=== PATIENT | male | born 1955 | race Caucasian/White ===

== ENCOUNTER 2020-06-10 10:52 | Inpatient (IN) | payer OTHER ==
[~2020-06-10] VITALS: Ht 172.7 cm; Wt 125.2 kg
[2020-06-10 11:53] LABS: BASOPHILS % (AUTO) 0.5 % (0.0-2.0); HEMATOCRIT 41.2 % (36.7-47.1); HEMOGLOBIN 14.1 g/dL (12.5-16.3); LYMPHOCYTES # (AUTO) 0.6 K/uL (20.0-40.0); LYMPHOCYTES % (AUTO) 12.1 % (20.5-51.5); MEAN CORPUSCULAR HEMOGLOBIN 29.7 uug (23.8-33.4); MEAN CORPUSCULAR HGB CONC 34 g/dL (32.5-36.3); MEAN CORPUSCULAR VOLUME 86.8 fL (73.0-96.2); MONOCYTES # (AUTO) 0.4 K/uL (2.0-10.0); MONOCYTES % (AUTO) 7.9 % (0.0-11.0); NEUTROPHILS # (AUTO) 4.1 K/uL (1.8-8.9); NEUTROPHILS % (AUTO) 79.5 % (38.5-71.5); PLATELET COUNT (AUTO) 229 K/uL (152-348); RED BLOOD CELL COUNT(AUTO) 4.74 MIL/uL (4.06-5.63); WHITE BLOOD COUNT (AUTO) 5.1 K/uL (3.6-10.2)
[2020-06-10 11:57] LABS: CREATININE 1.1 mg/dL (0.6-1.3); POTASSIUM 3.6 mmol/L (3.5-5.1)
[2020-06-10] MEDS ORDERED: OXYB-58 PO (12:00)
[2020-06-10] MEDS ORDERED: LISI-603 PO (12:00)
[2020-06-10] MEDS ORDERED: PRAV20TA4 PO (12:00)
[2020-06-10] MEDS ORDERED: TAMS-3 PO (12:00)
[2020-06-10] MEDS ORDERED: FINA5TAB11 PO (12:00)
[2020-06-10] MEDS ORDERED: TEST75GE TD (12:00)
[2020-06-10] MEDS ORDERED: AMLO-212 PO (12:00)
[2020-06-10] MEDS ORDERED: FENO160T PO (12:00)
[2020-06-10 12:02] LABS: *BILIRUBIN,URIN NEGATIVE (NEGATIVE); *BLOOD, URINE 1+ (NEGATIVE); *CLARITY,URINE CLEAR (CLEAR); *COLOR,URINE YELLOW (YELLOW); *KETONES,URINE NEGATIVE (NEGATIVE); *UROBILINOGEN,URINE 0.2 E.U./dl (NORMAL); LEUKOCYTE ESTERASE ,URINE NEGATIVE (NEGATIVE); NITRITE, URINE NEGATIVE (NEGATIVE); PH,URINE 5.5 (5.0-8.0); UGLUCOSE NEGATIVE (NEGATIVE)
[2020-06-10 12:09] LABS: BILIRUBIN,DIRECT 0.2 mg/dL (0.0-0.2); BILIRUBIN,TOTAL 0.4 mg/dL (0.2-1.0); TOTAL PROTEIN, SERUM 7.9 g/dL (6.4-8.2)
[2020-06-10] MEDS ORDERED: ONDANSETRON 4 MG/2 ML VIAL IV ONE (12:30)
[2020-06-10] MEDS ORDERED: IV NORMAL SALINE 1000 ML BAG IV ONE (12:30)
[2020-06-10] MEDS ORDERED: HYDROMORPHONE 1 MG/1 ML DISP.SYRIN IV ONE (12:30)
[2020-06-10] MEDS ORDERED: IV NORMAL SALINE 250 ML IV ONE (12:33)
[2020-06-10] MEDS ORDERED: IOHEXOL 300MG/ML 100 ML INFUS..BTL ONE (12:33)
[2020-06-10] MEDS ORDERED: SWABABLE VALVE TRANSFER SET EA MC ONE (12:33)
[2020-06-10] MEDS ORDERED: HYDROMORPHONE 1 MG/1 ML DISP.SYRIN ONE (12:34)
[2020-06-10] MEDS ORDERED: ONDANSETRON 4 MG/2 ML VIAL ONE (12:35)
--- NOTE | 2020-06-10 12:46 | NUR ---
Pt signed consent for Iv contrasted Ct scan. Placed in the chart.
--- NOTE | 2020-06-10 12:51 | NUR ---
Pt out of Er for Ct.
--- NOTE | 2020-06-10 13:24 | NUR ---
Pt back from CT, denies discomfort.
--- NOTE | 2020-06-10 15:04 | NUR ---
Per [facility]PR[facility] Dr Greene, Pt to be admitted to [facility].
--- NOTE | 2020-06-10 16:54 | NUR ---
Dr Lynch spoke to Dr Chamorro for Tele admit. Pt made aware of admits and agreed.
[2020-06-10 17:02] LABS: BACTERIA,URINE NONE SEEN /HPF (NONE SEEN); SQUAMOUS EPITHELIAL CELL,UR NONE SEEN /HPF (NONE SEEN); URINE AMORPHOUS URATE MODERATE /HPF; WBC,URINE 0-3 /HPF (0-3)
--- NOTE | 2020-06-10 17:08 | NUR ---
Patient is resting comfortably in bed with eyes closed, DAWN noted.
[2020-06-10] MEDS ORDERED: DEXAMETHASONE SOD PHOSPHATE 10 MG INJ IV ONE (17:30)
[2020-06-10] MEDS ORDERED: KETOROLAC TROMETHAMINE 30 MG INJ IVP STA (17:51)
[2020-06-10] MEDS ORDERED: DEXAMETHASONE SOD PHOSPHATE 10 MG INJ ONE (17:57)
[2020-06-10] MEDS ORDERED: KETOROLAC TROMETHAMINE 30 MG INJ ONE (17:59)
[2020-06-10] MEDS ORDERED: METOCLOPRAMIDE HCL 10 MG/2 ML VIAL ONE (17:59)
[2020-06-10] MEDS ORDERED: METOCLOPRAMIDE HCL 10 MG/2 ML VIAL IV SCH (18:00)
[2020-06-10] MEDS: AZITHROMYCIN IV 500 MG in IV DEXTROSE 5% 250 ML IV SCH (18:45)
[2020-06-10] MEDS ORDERED: MORPHINE SULFATE 2 MG/1 ML DISP.SYRIN IV PRN (18:45)
[2020-06-10] MEDS ORDERED: ONDANSETRON 4 MG/2 ML VIAL IV PRN (18:45)
[2020-06-10] MEDS ORDERED: MAGNESIUM HYDROXIDE 30 ML LIQUID UDC PO PRN (18:45)
--- NOTE | 2020-06-10 18:55 | NUR ---
Pt seen by admitting, Dr Chamorro.
[2020-06-10] MEDS: DOCUSATE SODIUM 100 MG CAPSULE PO SCH (21:00)
[2020-06-10] MEDS ORDERED: AZITHROMYCIN 500 MG VIAL IV ONE (22:58)
--- NOTE | 2020-06-10 23:18 | NUR ---
Intravenous line to left forearm is patent. IVF infusing; and Azithromycin 500 mg is also infusing at this time. Patient conversant with appropriate affect and responses. Denies any distress at this time. Discussed plan of care; and agreeable. Report given to Ranjan, admitting RN to [facility] unit. COVID precautions maintained. Will continue to monitor. Vital signs stable.
[2020-06-11] VITALS (7 sets, daily range): BP systolic 112–142; BP diastolic 61–80
--- NOTE | 2020-06-11 00:15 | NUR ---
Pt came from ER c/o right lower quadrant abdominal pain,fatigue and SOB. Pt is AAOX4. Denies any CP. Pt placed on 2L NC and saturating at 96%. Denies N/V/Diarrhea. Patient is on isolation precaution, Covid +. RFA IV is intact. Personal belongings checked and with the patient. Safety measures in place. Call light within reach. Will continue with the plan of care.
[2020-06-11] MEDS: PANTOPRAZOLE SODIUM 40 MG TABLET.DR PO SCH (06:16)
[2020-06-11 06:19] LABS: BASOPHILS % (AUTO) 0.2 % (0.0-2.0); HEMATOCRIT 39.6 % (36.7-47.1); HEMOGLOBIN 13.4 g/dL (12.5-16.3); LYMPHOCYTES # (AUTO) 0.6 K/uL (20.0-40.0); MEAN CORPUSCULAR HEMOGLOBIN 29.5 uug (23.8-33.4); MEAN CORPUSCULAR HGB CONC 34 g/dL (32.5-36.3); MEAN CORPUSCULAR VOLUME 87.2 fL (73.0-96.2); MONOCYTES # (AUTO) 0.3 K/uL (2.0-10.0); MONOCYTES % (AUTO) 7.3 % (0.0-11.0); NEUTROPHILS # (AUTO) 3.4 K/uL (1.8-8.9); NEUTROPHILS % (AUTO) 78.5 % (38.5-71.5); PLATELET COUNT (AUTO) 234 K/uL (152-348); RED BLOOD CELL COUNT(AUTO) 4.55 MIL/uL (4.06-5.63); WHITE BLOOD COUNT (AUTO) 4.4 K/uL (3.6-10.2)
--- NOTE | 2020-06-11 06:41 | NUR ---
Pt remained stable throughout the shift. Denies any acute distress or pain at this time. V/S stable on 2L NC. NSR on tele monitor.Comfort care and needs attended. Isolation precaution maintained. Safety precautions in place. Call light within reach. Will endorse to oncoming nurse accordingly.
[2020-06-11 07:07] LABS: THYROID STIMULATING HORMONE 1.138 mIU/mL (0.358-3.740)
--- NOTE | 2020-06-11 07:30 | NUR ---
Received patient in bed, awake, alert and oriented times 4. No sign of distress noted. Patient is on 4L of oxygen nasal cannula. Safety precautions are in place with call light and belongings within reach. Will continue to monitor.
[2020-06-11 07:36] LABS: BILIRUBIN,TOTAL 0.4 mg/dL (0.2-1.0); CREATININE 1.1 mg/dL (0.6-1.3); MAGNESIUM 2.1 mg/dL (1.8-2.4); PHOSPHOROUS 3.3 mg/dL (2.5-4.9); POTASSIUM 4.1 mmol/L (3.5-5.1); TOTAL PROTEIN, SERUM 7.5 g/dL (6.4-8.2)
[2020-06-11] MEDS: DEXAMETHASONE SOD PHOSPHATE 4 MG INJ IV SCH (10:17)
[2020-06-11] MEDS: ENOXAPARIN SODIUM 40 MG/0.4 ML DISP.SYRIN SQ SCH (13:04)
[2020-06-11] MEDS ORDERED: CEFTRIAXONE 1 G VIAL IM SCH (14:00)
[2020-06-11] MEDS ORDERED: CEFTRIAXONE 1 G in IV DEXTROSE 5% 50 ML IV SCH (15:00)
[2020-06-11] MEDS: AZITHROMYCIN IV 500 MG in IV DEXTROSE 5% 250 ML IV SCH (18:16)
[2020-06-11] MEDS: TAMSULOSIN HCL 0.4 MG CAP.SR.24H PO SCH (21:33)
[2020-06-11] MEDS: DOCUSATE SODIUM 100 MG CAPSULE PO SCH (21:33)
--- NOTE | 2020-06-12 00:05 | NUR ---
WAXER OPERATOR report drop in patient's O2 saturation to the 70s. Several attempts yielded similar results. Changed to non rebreather and increased to 6L. Patient's O2 sat increased to 98%. Will continue to monitor.
[2020-06-12] MEDS: ACETAMINOPHEN 325 MG TABLET PO PRN ×2 (00:20→17:41)
[2020-06-12 04:00] VITALS: BP 123/79
[2020-06-12] MEDS: OXYBUTYNIN XL 5 MG TABSR PO SCH (06:21)
[2020-06-12] MEDS: PANTOPRAZOLE SODIUM 40 MG TABLET.DR PO SCH (06:21)
--- NOTE | 2020-06-12 06:54 | NUR ---
Patient is resting in bed. No sign of distress noted. Gave all medications as ordered. Patient O2 has been in the low 90s with the non-rebreather at 6L. MD made aware. Safety precautions are in place. Will endorse to oncoming shift.
[2020-06-12] MEDS: DEXAMETHASONE SOD PHOSPHATE 4 MG INJ IV SCH (08:28)
[2020-06-12] MEDS: FINASTERIDE 5 MG TABLET PO SCH (08:28)
[2020-06-12] MEDS: ENOXAPARIN SODIUM 40 MG/0.4 ML DISP.SYRIN SQ SCH (08:33)
[2020-06-12 10:26] LABS: ABG BASE EXCESS -0.2 mmol/L; ABG HCO3 23.2 mmol/L; ABG PCO2 34.4 mmHg (35.0-45.0); ABG PH 7.447 (7.350-7.450); ABG PO2 61.2 mmHg (75.0-100.0); ABG SITE RIGHT RADIAL; ABG TOTAL HEMOGLOBIN 14.1 G/dL (13.5-18.0); COHb 1.5 % (0.5-1.5); MetHb 0.1 % (0.0-1.5); O2Hb 90.3 % (94.0-97.0)
[2020-06-12 11:45] VITALS: BP 138/74
--- NOTE | 2020-06-12 15:11 | NUR ---
INVESTIGATIONS DIRECTOR REPORTS O2 SATURATION IN LOW 80S ON 6L OXYGEN. INCREASED OXYGEN TO 12L VIA NONREBREATHER MASK - SATURATION 90-91%. WILL CONTINUE TO MONITOR. MD NOTIFIED.
[2020-06-12 15:38] VITALS: BP 128/74
[2020-06-12] MEDS: ZINC SULFATE 220 MG CAPSULE PO SCH (16:16)
[2020-06-12 20:00] VITALS: BP 128/78
[2020-06-12] MEDS ORDERED: REMDESIVIR (CHARGED) 200 MG in IV NORMAL SALINE 250 ML IV ONE (20:00)
[2020-06-12] MEDS: DOCUSATE SODIUM 100 MG CAPSULE PO SCH (21:10)
[2020-06-12] MEDS: TAMSULOSIN HCL 0.4 MG CAP.SR.24H PO SCH (21:10)
[2020-06-12] MEDS: MIRALAX 17 GM POWD.PACK PO PRN (21:21)
[2020-06-12] MEDS: ALBUTEROL SULFATE 8 GM HFA.AER.AD IH PRN (22:35)
--- NOTE | 2020-06-13 00:18 | NUR ---
Received pt resting in bed. AAO x3. On 12L O2 via nonrebreather mask, saturation 90%. Denies pain. Due meds given as ordered. Safety measures maintained. Call light and personal items within reach. Will continue to monitor.
[2020-06-13 00:50] VITALS: BP 141/83
--- NOTE | 2020-06-13 03:12 | NUR ---
Pt on 15L nonrebreather mask, O2 sat 85%, and pt has shortness of breath especially on exertion. Notified Viry, with new order to place high flow NC and NRB. Notified RT. Will continue to monitor.
[2020-06-13 04:53] VITALS: BP 155/82
[2020-06-13 05:31] VITALS: BP 131/70
[2020-06-13] MEDS: OXYBUTYNIN XL 5 MG TABSR PO SCH (05:39)
[2020-06-13] MEDS: PANTOPRAZOLE SODIUM 40 MG TABLET.DR PO SCH (06:09)
--- NOTE | 2020-06-13 07:30 | NUR ---
Received patient in bed, awake, alert and oriented times 4. No sign of distress noted. Patient is on high flow oxygen with a non rebreather mask. Safety precautions are in place with call light and belongings within reach. Will continue to monitor.
[2020-06-13 08:18] LABS: BILIRUBIN,DIRECT 0.2 mg/dL (0.0-0.2); BILIRUBIN,TOTAL 0.5 mg/dL (0.2-1.0); CREATININE 1.1 mg/dL (0.6-1.3); MAGNESIUM 1.7 mg/dL (1.8-2.4); PHOSPHOROUS 4.3 mg/dL (2.5-4.9); POTASSIUM 3.6 mmol/L (3.5-5.1); TOTAL PROTEIN, SERUM 7.5 g/dL (6.4-8.2)
[2020-06-13 09:25] LABS: BASOPHILS % (AUTO) 0.4 % (0.0-2.0); HEMATOCRIT 38.5 % (36.7-47.1); HEMOGLOBIN 13.2 g/dL (12.5-16.3); LYMPHOCYTES # (AUTO) 1.1 K/uL (20.0-40.0); LYMPHOCYTES % (AUTO) 12.4 % (20.5-51.5); MEAN CORPUSCULAR HGB CONC 34 g/dL (32.5-36.3); MEAN CORPUSCULAR VOLUME 87.5 fL (73.0-96.2); MONOCYTES # (AUTO) 0.5 K/uL (2.0-10.0); MONOCYTES % (AUTO) 5.4 % (0.0-11.0); NEUTROPHILS # (AUTO) 7.2 K/uL (1.8-8.9); NEUTROPHILS % (AUTO) 81.8 % (38.5-71.5); PLATELET COUNT (AUTO) 256 K/uL (152-348); WHITE BLOOD COUNT (AUTO) 8.8 K/uL (3.6-10.2)
[2020-06-13] MEDS ORDERED: MAGNESIUM OXIDE 400 MG TABLET PO ONE (10:00)
[2020-06-13] MEDS ORDERED: POTASSIUM CHLORIDE 20 MEQ TAB.PRT.SR PO ONE (10:00)
[2020-06-13] MEDS ORDERED: POTASSIUM CHLORIDE 20 MEQ POWDER PACKET PO ONE (10:15)
[2020-06-13] MEDS: ZINC SULFATE 220 MG CAPSULE PO SCH (11:06)
[2020-06-13] MEDS: DEXAMETHASONE SOD PHOSPHATE 4 MG INJ IV SCH (11:06)
[2020-06-13] MEDS: FINASTERIDE 5 MG TABLET PO SCH (11:06)
[2020-06-13] MEDS: ENOXAPARIN SODIUM 40 MG/0.4 ML DISP.SYRIN SQ SCH (11:07)
[2020-06-13 12:00] VITALS: BP 124/71
[2020-06-13] MEDS ORDERED: REMDESIVIR (CHARGED) 100 MG in IV NORMAL SALINE 230 ML IV SCH (15:30)
[2020-06-13 16:00] VITALS: BP 133/80
[2020-06-13 18:18] LABS: *OCCULT BLOOD STOOL NEGATIVE (NEGATIVE)
[2020-06-13] MEDS: TAMSULOSIN HCL 0.4 MG CAP.SR.24H PO SCH (20:42)
[2020-06-13] MEDS: DOCUSATE SODIUM 100 MG CAPSULE PO SCH (20:42)
[2020-06-13 20:44] VITALS: BP 146/95
[2020-06-13] MEDS: REMDESIVIR (CHARGED) 100 MG in IV NORMAL SALINE 100 ML IV SCH (20:47)
[2020-06-13] MEDS: MIRALAX 17 GM POWD.PACK PO PRN (22:01)
--- NOTE | 2020-06-13 22:54 | NUR ---
Received pt sitting on bed and eating. AAO x4. On high flow NC/ NRB. No acute distress noted. Denies pain/ discomfort. Due meds given as ordered. Safety measures maintained. Call light and personal items within reach. Will continue to monitor.
[2020-06-13] MEDS: ACETAMINOPHEN 325 MG TABLET PO PRN (23:34)
[2020-06-14 00:48] VITALS: BP 144/80
[2020-06-14 04:56] VITALS: BP 133/63
[2020-06-14] MEDS: PANTOPRAZOLE SODIUM 40 MG TABLET.DR PO SCH (06:11)
[2020-06-14] MEDS: OXYBUTYNIN XL 5 MG TABSR PO SCH (06:12)
[2020-06-14 07:58] LABS: BASOPHILS % (AUTO) 0.1 % (0.0-2.0); HEMATOCRIT 38.7 % (36.7-47.1); HEMOGLOBIN 13.3 g/dL (12.5-16.3); LYMPHOCYTES % (AUTO) 10.8 % (20.5-51.5); MEAN CORPUSCULAR HEMOGLOBIN 29.9 uug (23.8-33.4); MEAN CORPUSCULAR HGB CONC 34 g/dL (32.5-36.3); MEAN CORPUSCULAR VOLUME 87.2 fL (73.0-96.2); MONOCYTES # (AUTO) 0.3 K/uL (2.0-10.0); MONOCYTES % (AUTO) 3.8 % (0.0-11.0); NEUTROPHILS # (AUTO) 7.7 K/uL (1.8-8.9); NEUTROPHILS % (AUTO) 85.3 % (38.5-71.5); PLATELET COUNT (AUTO) 291 K/uL (152-348); RED BLOOD CELL COUNT(AUTO) 4.44 MIL/uL (4.06-5.63)
[2020-06-14 08:24] LABS: BILIRUBIN,DIRECT 0.2 mg/dL (0.0-0.2); BILIRUBIN,TOTAL 0.6 mg/dL (0.2-1.0); PHOSPHOROUS 3.5 mg/dL (2.5-4.9); POTASSIUM 3.6 mmol/L (3.5-5.1); TOTAL PROTEIN, SERUM 7.7 g/dL (6.4-8.2)
[2020-06-14] MEDS: ZINC SULFATE 220 MG CAPSULE PO SCH (09:23)
[2020-06-14] MEDS: FINASTERIDE 5 MG TABLET PO SCH (09:23)
[2020-06-14] MEDS: DEXAMETHASONE SOD PHOSPHATE 4 MG INJ IV SCH (09:24)
[2020-06-14] MEDS: ENOXAPARIN SODIUM 40 MG/0.4 ML DISP.SYRIN SQ SCH (09:27)
[2020-06-14 12:15] VITALS: BP 125/77
[2020-06-14] MEDS: ACETAMINOPHEN 325 MG TABLET PO PRN (12:40)
[2020-06-14] MEDS: MIRALAX 17 GM POWD.PACK PO PRN (13:04)
[2020-06-14 16:00] VITALS: BP 124/76
[2020-06-14 18:48] LABS: *BILIRUBIN,URIN NEGATIVE (NEGATIVE); *BLOOD, URINE NEGATIVE (NEGATIVE); *CLARITY,URINE CLEAR (CLEAR); *COLOR,URINE DARK YELLOW (YELLOW); *KETONES,URINE NEGATIVE (NEGATIVE); LEUKOCYTE ESTERASE ,URINE NEGATIVE (NEGATIVE); NITRITE, URINE NEGATIVE (NEGATIVE); UGLUCOSE NEGATIVE (NEGATIVE)
--- NOTE | 2020-06-14 18:55 | NUR ---
Patient remains alert, oriented x 4, on high flow NC and non-rebreather. No complain of any pain or discomfort at this time. Needs attended to promptly. Noted with episode of fever 100.8, given PRN tylenol as ordered with noted improvement of temp. to 98.6. Call light and frequently used items placed within patient's reach. Will continue to monitor and will endorse accordingly.
[2020-06-14 20:18] VITALS: BP 120/71
[2020-06-14] MEDS: REMDESIVIR (CHARGED) 100 MG in IV NORMAL SALINE 100 ML IV SCH (21:01)
[2020-06-14] MEDS: TAMSULOSIN HCL 0.4 MG CAP.SR.24H PO SCH (21:03)
[2020-06-14] MEDS: DOCUSATE SODIUM 100 MG CAPSULE PO SCH (21:03)
--- NOTE | 2020-06-14 23:40 | NUR ---
PATIENT ALERT ORIENTED, ON BIPAP 03/06 RATE 24 100%, SATURATION 92%. PATIENT SAID HE FELT BETTER, CONT TO MONITOR.
--- NOTE | 2020-06-14 23:40 | NUR ---
PATIENT COMPLAIN OF DIFFICULTY BREATHING, CHECK OXYGEN SATURATION 76 TO 83 ON HIGH FLOW, PLUS NON BREATHER MASK 10, COMPLAIN OF CHEST PAIN. NOTIFY DR SAMSON WITH ORDER BIPAP TO KEEP SAT 92 ABOVE. PATIENT OFFERED MORPHINE IV FOR PAIN BUT REFUSED. CONT TO MONITOR , NO S/S OF DISTRESS.
[2020-06-15 00:09] VITALS: BP 133/80
[2020-06-15] MEDS: ACETAMINOPHEN 325 MG TABLET PO PRN (03:27)
--- NOTE | 2020-06-15 04:27 | NUR ---
PATIENT ASLEEP BUT AROUSABLE, GIVEN TYLENOL 650MG FOR HEADACHES WITH EFFECTIVE RESULTS, CONT TO MONITOR.
[2020-06-15 06:01] VITALS: BP 107/57
[2020-06-15] MEDS: OXYBUTYNIN XL 5 MG TABSR PO SCH (06:07)
[2020-06-15] MEDS: PANTOPRAZOLE SODIUM 40 MG TABLET.DR PO SCH (06:07)
--- NOTE | 2020-06-15 07:06 | NUR ---
Patient asleep, but arousable, on cpap sat 88-95%, no complain of pain or discomfort. Patient tele monitor sinus rhythm at this time, cont to monitor.
--- NOTE | 2020-06-15 07:30 | NUR ---
Received patient in bed, Awake alert and oriented times 4. Patient is on BIPAP. No signs of distress noted. Safety precautions in place. Will continue to monitor.
[2020-06-15 08:53] LABS: BASOPHILS % (AUTO) 0.5 % (0.0-2.0); EOSINOPHILS % (AUTO) 0.1 % (0.0-7.0); HEMATOCRIT 37.2 % (36.7-47.1); HEMOGLOBIN 12.8 g/dL (12.5-16.3); MEAN CORPUSCULAR HEMOGLOBIN 30.1 uug (23.8-33.4); MEAN CORPUSCULAR HGB CONC 34 g/dL (32.5-36.3); MEAN CORPUSCULAR VOLUME 87.7 fL (73.0-96.2); MONOCYTES # (AUTO) 0.3 K/uL (2.0-10.0); NEUTROPHILS # (AUTO) 7.9 K/uL (1.8-8.9); NEUTROPHILS % (AUTO) 85.4 % (38.5-71.5); PLATELET COUNT (AUTO) 261 K/uL (152-348); RED BLOOD CELL COUNT(AUTO) 4.24 MIL/uL (4.06-5.63); WHITE BLOOD COUNT (AUTO) 9.3 K/uL (3.6-10.2)
[2020-06-15 09:16] LABS: BILIRUBIN,DIRECT 0.1 mg/dL (0.0-0.2); BILIRUBIN,TOTAL 0.8 mg/dL (0.2-1.0); CREATININE 0.9 mg/dL (0.6-1.3); POTASSIUM 4.2 mmol/L (3.5-5.1); TOTAL PROTEIN, SERUM 7.5 g/dL (6.4-8.2)
[2020-06-15] MEDS: ZINC SULFATE 220 MG CAPSULE PO SCH (11:36)
[2020-06-15] MEDS: ENOXAPARIN SODIUM 40 MG/0.4 ML DISP.SYRIN SQ SCH (11:36)
[2020-06-15] MEDS: FINASTERIDE 5 MG TABLET PO SCH (11:36)
[2020-06-15] MEDS: DEXAMETHASONE SOD PHOSPHATE 4 MG INJ IV SCH (11:36)
[2020-06-15 12:00] VITALS: BP 119/66
[2020-06-15] MEDS: ACIDOPHILUS/BULGARICUS CHEW TAB PO SCH ×2 (13:13→22:22)
[2020-06-15] MEDS: ASCORBIC ACID 500 MG TABLET PO SCH (13:13)
[2020-06-15] MEDS: CHOLECALCIFEROL 1,000 UNIT TABLET PO SCH (13:13)
[2020-06-15] MEDS: PIPERACILLIN SODIUM/TAZOBACTAM 3.375 G in IV DEXTROSE 5% 50 ML IV SCH ×2 (14:44→22:19)
[2020-06-15 16:00] VITALS: BP 133/76
[2020-06-15] MEDS: REMDESIVIR (CHARGED) 100 MG in IV NORMAL SALINE 100 ML IV SCH (20:00)
[2020-06-15 20:18] VITALS: BP 130/79
[2020-06-15] MEDS: DOCUSATE SODIUM 100 MG CAPSULE PO SCH (22:22)
[2020-06-15] MEDS: TAMSULOSIN HCL 0.4 MG CAP.SR.24H PO SCH (22:22)
[2020-06-16 00:12] VITALS: BP 110/67
[2020-06-16] MEDS: PIPERACILLIN SODIUM/TAZOBACTAM 3.375 G in IV DEXTROSE 5% 50 ML IV SCH ×3 (05:00→22:14)
[2020-06-16 05:41] VITALS: BP 125/72
[2020-06-16] MEDS: OXYBUTYNIN XL 5 MG TABSR PO SCH (05:57)
[2020-06-16] MEDS: PANTOPRAZOLE SODIUM 40 MG TABLET.DR PO SCH (06:04)
[2020-06-16] MEDS: ACIDOPHILUS/BULGARICUS CHEW TAB PO SCH ×2 (08:39→21:03)
[2020-06-16] MEDS: CHOLECALCIFEROL 1,000 UNIT TABLET PO SCH (08:39)
[2020-06-16] MEDS: FINASTERIDE 5 MG TABLET PO SCH (08:39)
[2020-06-16] MEDS: DEXAMETHASONE SOD PHOSPHATE 4 MG INJ IV SCH (08:40)
[2020-06-16] MEDS: ZINC SULFATE 220 MG CAPSULE PO SCH (08:40)
[2020-06-16] MEDS: ASCORBIC ACID 500 MG TABLET PO SCH (08:40)
[2020-06-16] MEDS: ENOXAPARIN SODIUM 40 MG/0.4 ML DISP.SYRIN SQ SCH (08:41)
[2020-06-16 09:06] LABS: BILIRUBIN,DIRECT 0.1 mg/dL (0.0-0.2); BILIRUBIN,TOTAL 0.6 mg/dL (0.2-1.0); CREATININE 0.9 mg/dL (0.6-1.3); MAGNESIUM 2.1 mg/dL (1.8-2.4); PHOSPHOROUS 3.9 mg/dL (2.5-4.9); POTASSIUM 4.3 mmol/L (3.5-5.1); TOTAL PROTEIN, SERUM 7.2 g/dL (6.4-8.2)
[2020-06-16 09:22] VITALS: BP 132/72
[2020-06-16 09:55] LABS: BASOPHILS % (AUTO) 0.1 % (0.0-2.0); EOSINOPHILS % (AUTO) 0.2 % (0.0-7.0); HEMATOCRIT 37.6 % (36.7-47.1); HEMOGLOBIN 12.6 g/dL (12.5-16.3); LYMPHOCYTES # (AUTO) 0.9 K/uL (20.0-40.0); LYMPHOCYTES % (AUTO) 8.8 % (20.5-51.5); MEAN CORPUSCULAR HEMOGLOBIN 29.7 uug (23.8-33.4); MEAN CORPUSCULAR HGB CONC 34 g/dL (32.5-36.3); MEAN CORPUSCULAR VOLUME 88.3 fL (73.0-96.2); MONOCYTES # (AUTO) 0.3 K/uL (2.0-10.0); MONOCYTES % (AUTO) 2.5 % (0.0-11.0); NEUTROPHILS # (AUTO) 9.3 K/uL (1.8-8.9); NEUTROPHILS % (AUTO) 88.4 % (38.5-71.5); PLATELET COUNT (AUTO) 249 K/uL (152-348); RED BLOOD CELL COUNT(AUTO) 4.26 MIL/uL (4.06-5.63); WHITE BLOOD COUNT (AUTO) 10.5 K/uL (3.6-10.2)
[2020-06-16] MEDS ORDERED: ENOXAPARIN SODIUM 80 MG/0.8 ML DISP.SYRIN SQ ONE (13:00)
[2020-06-16 17:40] VITALS: BP 130/72
--- NOTE | 2020-06-16 19:00 | NUR ---
Neuro: AAOx4 Cardio: SR Resp: Bipap fio2 100%, spo2 92%-93%. Pt put on HF 40L 100% during meals. Pt did not tolerate, spo2 drop to mid 70's, pt SOB and complained of feeling "suffocated" Skin: intact GI: continent : continent, urinal New: Lactate: 2.3, D-dimer >35, lovenox adjusted. Plan: AM labs, IV Remdesevir and Actemra, Bipap and titrate as tolerated, tele monitoring
[2020-06-16 20:00] VITALS: BP 139/70
[2020-06-16] MEDS ORDERED: diphenhydrAMINE 50 MG/1 ML VIAL IV ONE ×2 (20:00→23:00)
[2020-06-16] MEDS ORDERED: TOCILIZUMAB 400 MG in IV NORMAL SALINE 80 ML IV ONE (20:00)
[2020-06-16] MEDS ORDERED: ACETAMINOPHEN 325 MG TABLET PO ONE ×2 (20:00→23:00)
[2020-06-16] MEDS: TAMSULOSIN HCL 0.4 MG CAP.SR.24H PO SCH (21:03)
[2020-06-16] MEDS: REMDESIVIR (CHARGED) 100 MG in IV NORMAL SALINE 100 ML IV SCH (21:03)
[2020-06-16] MEDS: DOCUSATE SODIUM 100 MG CAPSULE PO SCH (21:03)
[2020-06-16] MEDS: TOCILIZUMAB 400 MG in IV NORMAL SALINE 80 ML IV ONE (23:00)
[2020-06-16] MEDS: ENOXAPARIN SODIUM 120 MG/0.8 ML SYRINGE SQ SCH (23:00)
[2020-06-17] VITALS: BP 140/82
[2020-06-17] MEDS: TOCILIZUMAB 400 MG in IV NORMAL SALINE 80 ML IV ONE (00:36)
--- NOTE | 2020-06-17 02:00 | NUR ---
actemra administered after withdrawal of blood per Pooja in house pharmacy. patient closely monitored for side effects of hypotension or other s/s of distress per Pooja. no reactions and no ASE after completion of administration. patient stable. BP and temperature WNL at this time. will continue to monitor patient.
[2020-06-17 04:31] VITALS: BP 114/68
[2020-06-17] MEDS: PIPERACILLIN SODIUM/TAZOBACTAM 3.375 G in IV DEXTROSE 5% 50 ML IV SCH ×2 (06:06→13:44)
[2020-06-17] MEDS: PANTOPRAZOLE SODIUM 40 MG TABLET.DR PO SCH (06:06)
[2020-06-17] MEDS: OXYBUTYNIN XL 5 MG TABSR PO SCH (06:06)
[2020-06-17 07:31] LABS: BASOPHILS % (AUTO) 0.3 % (0.0-2.0); EOSINOPHILS % (AUTO) 0.8 % (0.0-7.0); HEMATOCRIT 37.3 % (36.7-47.1); HEMOGLOBIN 12.5 g/dL (12.5-16.3); LYMPHOCYTES # (AUTO) 0.8 K/uL (20.0-40.0); LYMPHOCYTES % (AUTO) 13.4 % (20.5-51.5); MEAN CORPUSCULAR HEMOGLOBIN 29.7 uug (23.8-33.4); MEAN CORPUSCULAR HGB CONC 34 g/dL (32.5-36.3); MEAN CORPUSCULAR VOLUME 88.7 fL (73.0-96.2); MONOCYTES # (AUTO) 0.2 K/uL (2.0-10.0); MONOCYTES % (AUTO) 2.8 % (0.0-11.0); NEUTROPHILS # (AUTO) 4.7 K/uL (1.8-8.9); NEUTROPHILS % (AUTO) 82.7 % (38.5-71.5); PLATELET COUNT (AUTO) 257 K/uL (152-348); WHITE BLOOD COUNT (AUTO) 5.7 K/uL (3.6-10.2)
[2020-06-17 07:48] LABS: CREATININE 1.1 mg/dL (0.6-1.3); MAGNESIUM 2.2 mg/dL (1.8-2.4); PHOSPHOROUS 4.7 mg/dL (2.5-4.9)
[2020-06-17] MEDS: ASCORBIC ACID 500 MG TABLET PO SCH (08:00)
[2020-06-17] MEDS: ZINC SULFATE 220 MG CAPSULE PO SCH (08:00)
--- NOTE | 2020-06-17 08:00 | NUR ---
Received PT in bed, awake AO X 4. Safety measures noted. PT is cooperative and pleasant. No acute distress noted. Some SOB noted when Bipap is taken off for a minute. Oxygen saturation at 91% with Bipap. PT states that removing Bipap to eat gives discomfort. Makes needs known to staff. PT is on bedrest with safety measures, call light within reach, bed low and lock. Will continue to monitor.
[2020-06-17] MEDS: CHOLECALCIFEROL 1,000 UNIT TABLET PO SCH (08:02)
[2020-06-17] MEDS: ACIDOPHILUS/BULGARICUS CHEW TAB PO SCH ×2 (08:02→20:16)
[2020-06-17] MEDS: DEXAMETHASONE SOD PHOSPHATE 4 MG INJ IV SCH (08:02)
[2020-06-17] MEDS: FINASTERIDE 5 MG TABLET PO SCH (08:02)
--- NOTE | 2020-06-17 08:40 | NUR ---
ATTEMPTED TO PUT PATIENT ON HIGH FLOW NASAL CANNULA SO PATIENT CAN EAT. PT UNABLE TO TOLERATE; O2 SAT DROPS TO ~68% ON 50L @ 100% AND BECOMES SHORT OF BREATH. PT UNABLE TO EAT AND PLACED PT BACK ON BIPAP. O2 SAT INCREASED TO >90%. NURSE NICK MADE AWARE. WILL CONTINUE TO MONITOR.
--- NOTE | 2020-06-17 08:45 | NUR ---
Encouraged PT to eat as much as tolerated. PT attempted to eat breakfast with high flow NC with respiratory therapist, but desaturated to 68%. PT was placed back on Bipap by RT. Consumed 15-20% meal. Back on Bipap, O2 saturation is at 92%.No acute distress noted. PT comfortable and in bed. Safety measures provided, call light within reach, bed low and lock. Will continue to monitor.
[2020-06-17] MEDS: ENOXAPARIN SODIUM 120 MG/0.8 ML SYRINGE SQ SCH ×2 (11:12→23:17)
[2020-06-17 12:00] VITALS: BP 125/74
[2020-06-17 12:31] LABS: ABG HCO3 23.3 mmol/L; ABG PH 7.454 (7.350-7.450); ABG PO2 81.6 mmHg (75.0-100.0); ABG SITE LEFT RADIAL; ABG TOTAL HEMOGLOBIN 13.1 G/dL (13.5-18.0); COHb 1.2 % (0.5-1.5); MetHb 0.1 % (0.0-1.5); O2Hb 95.1 % (94.0-97.0); VENT MODE BIPAP
[2020-06-17] MEDS: ENSURE ENLIVE (VAN) 240 ML LIQUID PO SCH ×2 (16:15→17:36)
[2020-06-17 16:18] VITALS: BP 115/48
--- NOTE | 2020-06-17 18:00 | NUR ---
PT did not want to attempt lunch meal. Ensure supplement order placed for calorie consumption. PT tolerated little at a time on Bipap with nurse. Lots of rest periods between each sip. O2 saturation at 93%. During dinner meal, PT attempted to eat with high flow. Respiratory therapistJunaid monitored PT and stated that PT tolerated more than breakfast. Was placed back on Bipap and O2 saturation at 91%. No acute distress noted. No complain of pain. Safety measures provided, call light within reach, bed low and lock. Will endorse to shift stacker
--- NOTE | 2020-06-17 19:00 | NUR ---
Patient alert oriented, still on cpap sat 92%, no complain of pain, tele monitor sinus rhythm at this time, cont to monitor.
--- NOTE | 2020-06-17 19:30 | NUR ---
Patient refused prone position, unable to tolerate position, desaturating.
[2020-06-17 20:15] VITALS: BP 131/79
[2020-06-17] MEDS: DOCUSATE SODIUM 100 MG CAPSULE PO SCH (20:16)
[2020-06-17] MEDS: TAMSULOSIN HCL 0.4 MG CAP.SR.24H PO SCH (20:16)
[2020-06-17] MEDS: MIRALAX 17 GM POWD.PACK PO PRN (21:32)
[2020-06-18] VITALS (8 sets, daily range): BP systolic 109–153; BP diastolic 64–90
[2020-06-18] MEDS: ALBUTEROL SULFATE 8 GM HFA.AER.AD IH PRN (01:15)
[2020-06-18] MEDS: PANTOPRAZOLE SODIUM 40 MG TABLET.DR PO SCH (06:01)
[2020-06-18] MEDS: OXYBUTYNIN XL 5 MG TABSR PO SCH (06:02)
[2020-06-18] MEDS: CHOLECALCIFEROL 1,000 UNIT TABLET PO SCH (09:10)
[2020-06-18] MEDS: ACIDOPHILUS/BULGARICUS CHEW TAB PO SCH ×2 (09:10→20:37)
[2020-06-18] MEDS: FINASTERIDE 5 MG TABLET PO SCH (09:11)
[2020-06-18] MEDS: ZINC SULFATE 220 MG CAPSULE PO SCH (09:11)
[2020-06-18] MEDS: ENSURE ENLIVE (VAN) 240 ML LIQUID PO SCH ×2 (09:11→17:35)
[2020-06-18] MEDS: DEXAMETHASONE SOD PHOSPHATE 4 MG INJ IV SCH (09:11)
[2020-06-18] MEDS: ASCORBIC ACID 500 MG TABLET PO SCH (09:11)
[2020-06-18 11:16] LABS: CRYPTOCOCCUS AB, SERUM Negative (Negative)
[2020-06-18] MEDS: ENOXAPARIN SODIUM 120 MG/0.8 ML SYRINGE SQ SCH ×2 (12:02→22:41)
--- NOTE | 2020-06-18 18:00 | NUR ---
Convalescent plasma started transfusing at 1700, vs T98.5, P83, BP 118/70. Verified with GOPAL Rodriguez. Pt is no apparent distress. in 15 min Vs T98.3, P 85, BP 109/66. Finished infusing in one hour, no distress. Vs T 98.5, P 84, BP 112/70.
[2020-06-18] MEDS: TAMSULOSIN HCL 0.4 MG CAP.SR.24H PO SCH (20:37)
[2020-06-18] MEDS: DOCUSATE SODIUM 100 MG CAPSULE PO SCH (20:37)
--- NOTE | 2020-06-18 22:10 | NUR ---
Spoke with pt's sister Susie Moyer [phone] who would like to speak with a physician in regards to an update in status and condition. Will endorse to morning shift.
--- NOTE | 2020-06-18 23:00 | NUR ---
Pt assisted to prone position with RT present. Pt did not tolerate position well stating "It's hard to breath with a lot of pressure on my chest" bipap in place O2 saturation dropped to 87-86%. Repositioned patient to left side laying and provided education to reposition frequently.
[2020-06-19 01:45] VITALS: BP 124/72
[2020-06-19] MEDS: OXYBUTYNIN XL 5 MG TABSR PO SCH (06:08)
[2020-06-19] MEDS: PANTOPRAZOLE SODIUM 40 MG TABLET.DR PO SCH (06:08)
[2020-06-19 06:35] VITALS: BP 124/64
--- NOTE | 2020-06-19 07:00 | NUR ---
Pt slept intermittently, afebrile. No s/s of acute distress noted. SOB upon exertion, repositioning in bed and removing bipap to eat and drink. O2 desaturation to mid 80's without mask. Pt required coaching to focus on breathing and reduce anxiety, O2 increased to 90-92%. Safety and isolation precautions remained intact. will endorse to oncoming shift.
[2020-06-19 08:00] VITALS: BP 125/84
[2020-06-19] MEDS: ALBUTEROL SULFATE 8 GM HFA.AER.AD IH PRN ×3 (08:00→16:00)
[2020-06-19] MEDS: DEXAMETHASONE SOD PHOSPHATE 4 MG INJ IV SCH (08:42)
[2020-06-19] MEDS: ACIDOPHILUS/BULGARICUS CHEW TAB PO SCH ×2 (08:42→20:59)
[2020-06-19] MEDS: CHOLECALCIFEROL 1,000 UNIT TABLET PO SCH (08:42)
[2020-06-19] MEDS: ZINC SULFATE 220 MG CAPSULE PO SCH (08:42)
[2020-06-19] MEDS: ENSURE ENLIVE (VAN) 240 ML LIQUID PO SCH ×2 (08:42→16:49)
[2020-06-19] MEDS: ASCORBIC ACID 500 MG TABLET PO SCH (08:42)
[2020-06-19] MEDS: FINASTERIDE 5 MG TABLET PO SCH (08:42)
[2020-06-19] MEDS: ENOXAPARIN SODIUM 120 MG/0.8 ML SYRINGE SQ SCH ×2 (11:15→23:12)
[2020-06-19 12:00] VITALS: BP 127/82
--- NOTE | 2020-06-19 17:39 | NUR ---
patient is alert, oriented x4, verbally responsive, continues on BIPAP, sob upon exertion, poorly tolerated meals without the bipap, refused to go to prone position, patient stated he will try later, able to transfer himself from bed to bedside commode, and vise versa, instructed patient to focus on breathing. no fever, no chills noted during shift.
[2020-06-19 20:32] VITALS: BP 134/74
[2020-06-19] MEDS: DOCUSATE SODIUM 100 MG CAPSULE PO SCH (21:00)
[2020-06-19] MEDS: TAMSULOSIN HCL 0.4 MG CAP.SR.24H PO SCH (21:00)
[2020-06-19] MEDS ORDERED: CEFTRIAXONE /D5W 50ML IVPB **ER PYXIS IV ONE (21:56)
[2020-06-19] MEDS: CEFTRIAXONE 1 G in IV DEXTROSE 5% 50 ML IV SCH (23:12)
[2020-06-20] VITALS (13 sets, daily range): BP systolic 85–141; BP diastolic 44–85
[2020-06-20] MEDS: OXYBUTYNIN XL 5 MG TABSR PO SCH (06:09)
[2020-06-20] MEDS: PANTOPRAZOLE SODIUM 40 MG TABLET.DR PO SCH (06:09)
--- NOTE | 2020-06-20 06:42 | NUR ---
Pt slept intermittently, afebrile. No s/s of acute distress noted. SOB upon exertion. Pt refused prone position, repositioned self left to right side laying, continues on Bipap O2 90-92%. Safety measures and isolation precautions observed and in place. will endorse to oncoming shift.
[2020-06-20] MEDS: ALBUTEROL SULFATE 8 GM HFA.AER.AD IH PRN (07:01)
[2020-06-20] MEDS ORDERED: PROPOFOL 200 MG/20 ML BOTTLE IV ONE (07:38)
[2020-06-20] MEDS ORDERED: ETOMIDATE 20 MG/10 ML VIAL MC ONE (07:38)
[2020-06-20] MEDS ORDERED: SUCCINYLCHOLINE CHLORIDE 200 MG/10 ML VIAL MC ONE (07:38)
--- NOTE | 2020-06-20 08:00 | NUR ---
Patient received on BIPAP 26/01 rate of 18, FIO2 of 100%. Mid Line to LUE patent and HL. Over all patient AAOX4. PT able to make his needs known. Pt denies any c/o pain. Witnessed takes off his bipap to take pills and desaturates right away to 82%. Bipap reapplied after pills and ensure taken by patient. Call light is within reach.
[2020-06-20] MEDS: CHOLECALCIFEROL 1,000 UNIT TABLET PO SCH (09:34)
[2020-06-20] MEDS: ACIDOPHILUS/BULGARICUS CHEW TAB PO SCH ×2 (09:34→21:00)
[2020-06-20] MEDS: ASCORBIC ACID 500 MG TABLET PO SCH (09:34)
[2020-06-20] MEDS: ZINC SULFATE 220 MG CAPSULE PO SCH (09:34)
[2020-06-20] MEDS: FINASTERIDE 5 MG TABLET PO SCH (09:34)
[2020-06-20] MEDS: DEXAMETHASONE SOD PHOSPHATE 4 MG INJ IV SCH (09:35)
[2020-06-20] MEDS: ENSURE ENLIVE (VAN) 240 ML LIQUID PO SCH ×2 (09:35→17:13)
--- NOTE | 2020-06-20 10:00 | NUR ---
Dr Matthews here to see patient. Pt to be transferred to [facility]. Awaiting bed availability.
[2020-06-20] MEDS: ENOXAPARIN SODIUM 60 MG/0.6 ML DISP.SYRIN SQ SCH ×2 (11:00→21:21)
[2020-06-20 11:06] LABS: CRYPTOCOCCUS AB, SERUM Negative (Negative)
--- NOTE | 2020-06-20 12:00 | NUR ---
Pt tolerated getting oob independently to the commode. Pt doesn't desaturates when getting oob stay with o2 sat of 94%. Call light is within reach. No diarrhea noted.
--- NOTE | 2020-06-20 17:00 | NUR ---
Pt transferred to ICU as ordered. Report given to ICU nurse. Pt tolerated the transfer with NRB mask flushed with 15 liters.
--- NOTE | 2020-06-20 17:27 | NUR ---
Patient in from medical floor, via own bed, transported by R.N. and RT. patient received on BIPAP 18/8 rate of 18, FIO2 of 100%. ML to LUE patent and HL. Over all patient AAOX4. vitals stable HR of 72, sbp of 102/49, saturation of 92% RR int he mid 30-low 40's. patient situated in bed, oriented to call light and tv. control.
[2020-06-20 17:36] LABS: ABG BASE EXCESS 2.6 mmol/L; ABG HCO3 26.1 mmol/L; ABG PCO2 36.3 mmHg (35.0-45.0); ABG PH 7.474 (7.350-7.450); ABG PO2 63.5 mmHg (75.0-100.0); ABG SITE LEFT BRACHIAL; ABG TOTAL HEMOGLOBIN 13.5 G/dL (13.5-18.0); COHb 1.1 % (0.5-1.5); MetHb 0.1 % (0.0-1.5); O2Hb 91.6 % (94.0-97.0); VENT MODE BIPAP
--- NOTE | 2020-06-20 17:52 | NUR ---
ABG results called to [employer] nutrition aide Dr. Regalado. Orders to intubate pt. due to pt's desaturation despite been on 100% fio2 on BIPAP and labor breathing. Vent initials of A/C 24, tv 500, Peep +10. and ABG 1 hours post intubation. Orders for sedation and vasopressors received as well.
[2020-06-20] MEDS ORDERED: NOREPINEPHRINE BITARTRATE 32 MG in IV NORMAL SALINE 218 ML IV PRN (18:00)
--- NOTE | 2020-06-20 18:35 | NUR ---
Will Aguilar at bedside to intubate pt. during intubation pt. received a total of 40mg og etomidate, 100mcg propofol, and 200 of suchs. Pt. placed on vent setting as ordered by Dr. Regalado.
--- NOTE | 2020-06-20 19:00 | NUR ---
received patient post intubation , very restless , on propofolat 10 mcg , ns at 30 ml , cxr post intubation is being done , vent settings of ac 24 tv 500 p 10 fio2 100 % , saturating 90 % , no fevr , hr 113 bp 132 / 76 .rr 30 , temp of 98 3 , white inserted
--- NOTE | 2020-06-20 19:14 | NUR ---
Bedside report given to incoming rn Yuly who walked in the middle of intubations process. RN was endorsed initiation of propofol drip as well as levophed if needed it. R. N also informed to follow up with ABG 1hour post intubation.
[2020-06-20] MEDS: PROPOFOL 50 ML IV PRN ×4 (19:16→23:56)
--- NOTE | 2020-06-20 19:45 | NUR ---
dr eid notified of cxr ett placement , received order to advanced 1cm
--- NOTE | 2020-06-20 19:50 | NUR ---
notified rt celine of order to advance 1 cm ett , done
[2020-06-20] MEDS: FENTANYL CITRAT IV 1,000 MCG in IV NORMAL SALINE 80 ML IV PRN (19:58)
--- NOTE | 2020-06-20 20:00 | NUR ---
tried to call next of kin listed on the facesheet , phone is disconnected , no other number listed , dr quinn
--- NOTE | 2020-06-20 20:20 | NUR ---
versed iv started at 1 mg Addendum: 06/21/20 at 0314 by KRISTAN YO RN wrong medication enetered it is fentanyl started at 25 mcg
--- NOTE | 2020-06-20 20:30 | NUR ---
waiting for picc line nurse to insert picc line , supervisor gelatin [employer] is aware
[2020-06-20 20:57] LABS: ABG BASE EXCESS -10.3 mmol/L; ABG HCO3 20.5 mmol/L; ABG PCO2 66.8 mmHg (35.0-45.0); ABG PH 7.104 (7.350-7.450); ABG PO2 44.7 mmHg (75.0-100.0); ABG SITE LEFT RADIAL; ABG TOTAL HEMOGLOBIN 15.1 G/dL (13.5-18.0); COHb 1.3 % (0.5-1.5); MetHb 0.2 % (0.0-1.5); O2Hb 63.3 % (94.0-97.0); VENT MODE VENT - A/C; VT, ABG 500 mL
[2020-06-20] MEDS: DOCUSATE SODIUM 100 MG CAPSULE PO SCH (21:00)
[2020-06-20] MEDS: TAMSULOSIN HCL 0.4 MG CAP.SR.24H PO SCH (21:00)
--- NOTE | 2020-06-20 21:15 | NUR ---
dr berkowitz is notified of abg results , received order of vent changes
--- NOTE | 2020-06-20 22:00 | NUR ---
talked to sister Susie , updates given on the patient , on ventilator and medications being given , picc line consent given
--- NOTE | 2020-06-20 22:12 | NUR ---
oralia called to notify of patient's condition received order of iv fluids
[2020-06-20] MEDS ORDERED: Z GUARD REMEDY PASTE 57 GM TUBE TOP PRN (22:30)
--- NOTE | 2020-06-20 22:45 | NUR ---
picc line inserted by picc line nurse
[2020-06-20] MEDS: IV D5 1/2 NS 1000 ML 1,000 ML IV PRN (23:56)
[2020-06-21] VITALS (89 sets, daily range): BP systolic 68–184; BP diastolic 39–116
[2020-06-21] MEDS: CEFTRIAXONE 1 G in IV DEXTROSE 5% 50 ML IV SCH (00:01)
--- NOTE | 2020-06-21 01:00 | NUR ---
picc line nurse espositioned the picc line per xray results
[2020-06-21] MEDS: PROPOFOL 50 ML IV PRN ×8 (01:03→12:16)
--- NOTE | 2020-06-21 01:27 | NUR ---
xray done for new picc line post repositioning , waiting for results
--- NOTE | 2020-06-21 02:00 | NUR ---
miriam , outside pharmacy is called to verify maximum dose for fentanyl, 100 mcg
--- NOTE | 2020-06-21 04:00 | NUR ---
ngt inserted clamped
[2020-06-21 05:28] LABS: BASOPHILS # (AUTO) 0.1 K/uL (0.0-8.0); BASOPHILS % (AUTO) 0.5 % (0.0-2.0); EOSINOPHILS % (AUTO) 0.1 % (0.0-7.0); HEMATOCRIT 41.6 % (36.7-47.1); HEMOGLOBIN 13.5 g/dL (12.5-16.3); LYMPHOCYTES # (AUTO) 1.1 K/uL (20.0-40.0); LYMPHOCYTES % (AUTO) 4.9 % (20.5-51.5); MEAN CORPUSCULAR HEMOGLOBIN 29.1 uug (23.8-33.4); MEAN CORPUSCULAR HGB CONC 32 g/dL (32.5-36.3); MEAN CORPUSCULAR VOLUME 89.8 fL (73.0-96.2); MONOCYTES # (AUTO) 0.6 K/uL (2.0-10.0); MONOCYTES % (AUTO) 2.6 % (0.0-11.0); NEUTROPHILS # (AUTO) 20.5 K/uL (1.8-8.9); NEUTROPHILS % (AUTO) 91.9 % (38.5-71.5); PLATELET COUNT (AUTO) 342 K/uL (152-348); RED BLOOD CELL COUNT(AUTO) 4.63 MIL/uL (4.06-5.63); WHITE BLOOD COUNT (AUTO) 22.3 K/uL (3.6-10.2)
[2020-06-21 05:33] LABS: CREATININE 1.3 mg/dL (0.6-1.3)
--- NOTE | 2020-06-21 06:00 | NUR ---
propofol at 50 mcg , levophed at 0.01 , fentanyl at 30 mcg , vent settings at ac 30 tv 550 p 12 at 100 fio2 d5 1/2 ns at 75 ml , no fever , bs 142 ,
[2020-06-21] MEDS: PANTOPRAZOLE SODIUM 40 MG TABLET.DR PO SCH (06:42)
[2020-06-21] MEDS: OXYBUTYNIN XL 5 MG TABSR PO SCH (07:15)
[2020-06-21] MEDS: ENSURE ENLIVE (VAN) 240 ML LIQUID PO SCH ×2 (08:00→16:46)
--- NOTE | 2020-06-21 08:01 | NUR ---
[address] Randolph. orders to increase flow and ratio to 1:2. RT Peng in the unit and notified of orders.
[2020-06-21 08:02] LABS: BILIRUBIN,DIRECT 0.2 mg/dL (0.0-0.2); BILIRUBIN,TOTAL 0.4 mg/dL (0.2-1.0)
[2020-06-21] MEDS: ZINC SULFATE 220 MG CAPSULE PO SCH (08:29)
[2020-06-21] MEDS: FINASTERIDE 5 MG TABLET PO SCH (08:29)
[2020-06-21] MEDS: ASCORBIC ACID 500 MG TABLET PO SCH (08:29)
[2020-06-21] MEDS: ACIDOPHILUS/BULGARICUS CHEW TAB PO SCH ×2 (08:29→21:08)
[2020-06-21] MEDS: ENOXAPARIN SODIUM 60 MG/0.6 ML DISP.SYRIN SQ SCH ×2 (08:31→21:09)
[2020-06-21] MEDS: CHOLECALCIFEROL 1,000 UNIT TABLET PO SCH (08:36)
--- NOTE | 2020-06-21 11:37 | NUR ---
Attending physician, Dr. Matthews in the unit to see and examine pt. full report given, also provided with Cell phone number of pt's sister Ms. Susie Moyer who called earlier requesting and up date from physician. Earlier Ms. Moyer was updated on pt's current condition and care plan.
--- NOTE | 2020-06-21 11:39 | NUR ---
pulmonary services, Dr. Randolph in the unit to see and examine pt. full report given. See order hx.
[2020-06-21] MEDS ORDERED: IPRATROPIUM/ALBUTEROL SULFATE 14.7 GM INHALER INH SCH (13:00)
[2020-06-21] MEDS: PROPOFOL 100 ML IV PRN ×5 (13:38→23:48)
[2020-06-21] MEDS: IV D5 1/2 NS 1000 ML 1,000 ML IV PRN (13:43)
[2020-06-21] MEDS: IPRATROPIUM/ALBUTEROL SULFATE 14.7 GM INHALER INH SCH ×2 (14:00→19:30)
[2020-06-21] MEDS: NOREPINEPHRINE BITARTRATE 8 MG in IV NORMAL SALINE 242 ML IV PRN ×2 (16:07→19:40)
[2020-06-21] MEDS: FENTANYL CITRAT IV 1,000 MCG in IV NORMAL SALINE 80 ML IV PRN (17:34)
--- NOTE | 2020-06-21 19:00 | NUR ---
received patient labored breathing , tachypneic rr 39 , hr 105 , temp 99. 4 , bp 184/ 80 ngt [lacement checked and intact , vent settings of ac 30 tv 550 p 12 , titrated to 100 % fio2 , levophed at 0.2 mcg , propofol at 60 mcg , fentanyl at 100 mcg , d5 1/2 ns at 75 mk white and picc line intact
[2020-06-21 19:39] LABS: *BILIRUBIN,URIN NEGATIVE (NEGATIVE); *BLOOD, URINE 2+ (NEGATIVE); *CLARITY,URINE SLIGHTLY CLOUDY (CLEAR); *COLOR,URINE YELLOW (YELLOW); *KETONES,URINE NEGATIVE (NEGATIVE); *UROBILINOGEN,URINE 0.2 E.U./dl (NORMAL); LEUKOCYTE ESTERASE ,URINE NEGATIVE (NEGATIVE); NITRITE, URINE NEGATIVE (NEGATIVE); UGLUCOSE NEGATIVE (NEGATIVE)
[2020-06-21] MEDS ORDERED: PIPERACILLIN SODIUM/TAZOBACTAM 3.375 G in IV DEXTROSE 5% 50 ML IV ONE (20:00)
[2020-06-21 20:54] LABS: BACTERIA,URINE FEW /HPF (NONE SEEN); RBC,URINE 50-80 /HPF (0-3); SQUAMOUS EPITHELIAL CELL,UR FEW /HPF (NONE SEEN); WBC,URINE 0-3 /HPF (0-3)
[2020-06-21 20:55] LABS: URIC ACID CRYSTALS,URINE MODERATE /HPF (NONE SEEN)
[2020-06-21] MEDS: ACETAMINOPHEN 325 MG TABLET PO PRN (21:08)
[2020-06-21] MEDS: TAMSULOSIN HCL 0.4 MG CAP.SR.24H PO SCH (21:09)
[2020-06-21] MEDS: DOCUSATE SODIUM 100 MG CAPSULE PO SCH (21:09)
[2020-06-22] VITALS (91 sets, daily range): BP systolic 96–169; BP diastolic 55–100
[2020-06-22] MEDS: PROPOFOL 100 ML IV PRN ×13 (01:45→23:36)
[2020-06-22] MEDS: IPRATROPIUM/ALBUTEROL SULFATE 14.7 GM INHALER INH SCH ×4 (02:05→19:48)
[2020-06-22] MEDS: FENTANYL CITRAT IV 1,000 MCG in IV NORMAL SALINE 80 ML IV PRN ×3 (02:19→15:02)
[2020-06-22] MEDS: IV D5 1/2 NS 1000 ML 1,000 ML IV PRN (02:43)
[2020-06-22] MEDS: PIPERACILLIN SODIUM/TAZOBACTAM 3.37 G in IV DEXTROSE 5% 100 ML IV SCH ×3 (03:18→20:00)
[2020-06-22] MEDS: NOREPINEPHRINE BITARTRATE 8 MG in IV NORMAL SALINE 242 ML IV PRN ×2 (03:19→14:57)
[2020-06-22 05:06] LABS: EOSINOPHILS # (AUTO) 0.3 K/uL (0.0-0.7); EOSINOPHILS % (AUTO) 2.3 % (0.0-7.0); HEMATOCRIT 40.7 % (36.7-47.1); HEMOGLOBIN 13.5 g/dL (12.5-16.3); LYMPHOCYTES # (AUTO) 1.2 K/uL (20.0-40.0); LYMPHOCYTES % (AUTO) 9.2 % (20.5-51.5); MEAN CORPUSCULAR HEMOGLOBIN 29.6 uug (23.8-33.4); MEAN CORPUSCULAR HGB CONC 33 g/dL (32.5-36.3); MEAN CORPUSCULAR VOLUME 89.3 fL (73.0-96.2); MONOCYTES # (AUTO) 0.5 K/uL (2.0-10.0); MONOCYTES % (AUTO) 3.9 % (0.0-11.0); NEUTROPHILS # (AUTO) 11.5 K/uL (1.8-8.9); NEUTROPHILS % (AUTO) 84.6 % (38.5-71.5); PLATELET COUNT (AUTO) 323 K/uL (152-348); RED BLOOD CELL COUNT(AUTO) 4.56 MIL/uL (4.06-5.63); WHITE BLOOD COUNT (AUTO) 13.6 K/uL (3.6-10.2)
[2020-06-22 05:17] LABS: CREATININE 0.9 mg/dL (0.6-1.3); PHOSPHOROUS 2.8 mg/dL (2.5-4.9); POTASSIUM 4.5 mmol/L (3.5-5.1)
[2020-06-22] MEDS: OXYBUTYNIN XL 5 MG TABSR PO SCH (06:00)
--- NOTE | 2020-06-22 06:00 | NUR ---
patient is obtunded , arousable to deep pain , saturation at 98 % ac 30 tv 550 p 12 at 100 fio2% , fentanyl at 100 mcg , levophed at 01. mcg , d5 1/2 ns at 75 , propofol at 80 mcg , white and picc line intact, no fever , ngt intact
[2020-06-22] MEDS: PANTOPRAZOLE SODIUM 40 MG TABLET.DR PO SCH (06:06)
[2020-06-22 07:50] LABS: ABG BASE EXCESS -0.2 mmol/L; ABG HCO3 27.7 mmol/L; ABG PCO2 59.4 mmHg (35.0-45.0); ABG PH 7.287 (7.350-7.450); ABG PO2 77.5 mmHg (75.0-100.0); ABG SITE RIGHT RADIAL; COHb 1.4 % (0.5-1.5); MetHb 0.2 % (0.0-1.5); O2Hb 92.9 % (94.0-97.0); VENT MODE VENT - A/C PRVC; VT, ABG 500 mL
[2020-06-22] MEDS: ENSURE ENLIVE (VAN) 240 ML LIQUID PO SCH ×2 (07:52→17:00)
[2020-06-22] MEDS: FINASTERIDE 5 MG TABLET PO SCH (08:21)
[2020-06-22] MEDS: CHOLECALCIFEROL 1,000 UNIT TABLET PO SCH (08:21)
[2020-06-22] MEDS: ACIDOPHILUS/BULGARICUS CHEW TAB PO SCH ×2 (08:22→20:07)
[2020-06-22] MEDS: ZINC SULFATE 220 MG CAPSULE PO SCH (08:22)
[2020-06-22] MEDS: ASCORBIC ACID 500 MG TABLET PO SCH (08:22)
[2020-06-22] MEDS: ENOXAPARIN SODIUM 60 MG/0.6 ML DISP.SYRIN SQ SCH ×2 (08:22→20:06)
--- NOTE | 2020-06-22 09:02 | NUR ---
Upon initial morning assessment, pt noted with urine leaking around the white site with minimal output on the white bag. checked for placement. old white removed and noted to be clogged. new white inserted and drained around 1L of urine output immediately.
--- NOTE | 2020-06-22 11:19 | NUR ---
Dr. Vogel in the unit to see pt. report given
--- NOTE | 2020-06-22 13:15 | NUR ---
SHEMAR London and Dr. Randolph in the unit to see pt. full report given
--- NOTE | 2020-06-22 14:23 | NUR ---
vent settings changed by RT from FiO2 100% down to FiO2 80% as ordered by Dr. Randolph
[2020-06-22] MEDS: VITAL AF 1.2 1,000 ML LIQUID GT PRN (16:02)
--- NOTE | 2020-06-22 19:30 | NUR ---
Report received. Patient admitted 06/10/20 DX: Covid-19, Respiratory Failure. Orally intubated and to mechanical ventilator with settings: AC=30, FIO2=80%, SD=366ef and PEEP=12 cm. O2 saturations above 94%. On continuous Diprivan, Fentanyl and Levophed drips via NHUNG PICC line. Assessment done; see flow sheet for complete data. Addendum: 06/23/20 at 0604 by SHANIQUA CREWS RN Amended: Links added.
[2020-06-22] MEDS: TAMSULOSIN HCL 0.4 MG CAP.SR.24H PO SCH (20:07)
[2020-06-22] MEDS: DOCUSATE SODIUM 100 MG CAPSULE PO SCH (20:07)
[2020-06-23] VITALS (85 sets, daily range): BP systolic 80–118; BP diastolic 51–81
[2020-06-23] MEDS: FENTANYL CITRAT IV 1,000 MCG in IV NORMAL SALINE 80 ML IV PRN ×3 (00:54→18:35)
[2020-06-23] MEDS: IPRATROPIUM/ALBUTEROL SULFATE 14.7 GM INHALER INH SCH ×4 (01:28→19:18)
[2020-06-23] MEDS: PROPOFOL 100 ML IV PRN ×10 (01:30→22:41)
--- NOTE | 2020-06-23 03:00 | NUR ---
Levophed drip titrated down as BP permits. BPs dropped to the 80's systole; drip is now at 0.04 mcg/kg/min.
[2020-06-23] MEDS: PIPERACILLIN SODIUM/TAZOBACTAM 3.37 G in IV DEXTROSE 5% 100 ML IV SCH ×3 (04:13→20:01)
[2020-06-23] MEDS: IV D5 1/2 NS 1000 ML 1,000 ML IV PRN ×2 (04:50→22:38)
[2020-06-23 05:26] LABS: BASOPHILS % (AUTO) 0.1 % (0.0-2.0); EOSINOPHILS # (AUTO) 0.3 K/uL (0.0-0.7); EOSINOPHILS % (AUTO) 2.7 % (0.0-7.0); HEMATOCRIT 36.4 % (36.7-47.1); HEMOGLOBIN 12.2 g/dL (12.5-16.3); LYMPHOCYTES # (AUTO) 0.9 K/uL (20.0-40.0); LYMPHOCYTES % (AUTO) 9.3 % (20.5-51.5); MEAN CORPUSCULAR HEMOGLOBIN 29.8 uug (23.8-33.4); MEAN CORPUSCULAR HGB CONC 34 g/dL (32.5-36.3); MEAN CORPUSCULAR VOLUME 88.9 fL (73.0-96.2); MONOCYTES # (AUTO) 0.1 K/uL (2.0-10.0); MONOCYTES % (AUTO) 0.8 % (0.0-11.0); NEUTROPHILS # (AUTO) 8.2 K/uL (1.8-8.9); NEUTROPHILS % (AUTO) 87.1 % (38.5-71.5); PLATELET COUNT (AUTO) 230 K/uL (152-348); RED BLOOD CELL COUNT(AUTO) 4.09 MIL/uL (4.06-5.63); WHITE BLOOD COUNT (AUTO) 9.4 K/uL (3.6-10.2)
[2020-06-23] MEDS: NOREPINEPHRINE BITARTRATE 8 MG in IV NORMAL SALINE 242 ML IV PRN (05:40)
[2020-06-23] MEDS: OXYBUTYNIN XL 5 MG TABSR PO SCH (05:50)
[2020-06-23 06:10] LABS: BILIRUBIN,DIRECT 0.2 mg/dL (0.0-0.2); BILIRUBIN,TOTAL 0.5 mg/dL (0.2-1.0); CREATININE 0.7 mg/dL (0.6-1.3); MAGNESIUM 2.2 mg/dL (1.8-2.4); PHOSPHOROUS 2.4 mg/dL (2.5-4.9); POTASSIUM 4.4 mmol/L (3.5-5.1); TOTAL PROTEIN, SERUM 5.8 g/dL (6.4-8.2)
[2020-06-23] MEDS: PANTOPRAZOLE SODIUM 40 MG TABLET.DR PO SCH (06:37)
--- NOTE | 2020-06-23 07:06 | NUR ---
Remains on same vent settings; O2 saturations above 94%. Still on Diprivan, Levophed and Fentanyl drips via NHUNG PICC line; see IV spread sheet for rates/dosages. COVID-19 isolation maintained. Addendum: 06/23/20 at 0707 by SHANIQUA CREWS RN Amended: Links added.
[2020-06-23 07:49] LABS: ABG BASE EXCESS 4.4 mmol/L; ABG HCO3 32.7 mmol/L; ABG PCO2 67.7 mmHg (35.0-45.0); ABG PH 7.302 (7.350-7.450); ABG PO2 62.5 mmHg (75.0-100.0); ABG SITE RIGHT RADIAL; ABG TOTAL HEMOGLOBIN 12.6 G/dL (13.5-18.0); COHb 1.3 % (0.5-1.5); MetHb 0.2 % (0.0-1.5); O2Hb 89.8 % (94.0-97.0); VENT MODE VENT - A/C PRVC
[2020-06-23 08:00] LABS: VT, ABG 550 mL
[2020-06-23] MEDS: ENSURE ENLIVE (VAN) 240 ML LIQUID PO SCH (08:00)
[2020-06-23] MEDS: ACIDOPHILUS/BULGARICUS CHEW TAB PO SCH ×2 (08:30→20:57)
[2020-06-23] MEDS: FINASTERIDE 5 MG TABLET PO SCH (08:30)
[2020-06-23] MEDS: ZINC SULFATE 220 MG CAPSULE PO SCH (08:30)
[2020-06-23] MEDS: CHOLECALCIFEROL 1,000 UNIT TABLET PO SCH (08:31)
[2020-06-23] MEDS: ASCORBIC ACID 500 MG TABLET PO SCH (08:31)
[2020-06-23] MEDS: ENOXAPARIN SODIUM 60 MG/0.6 ML DISP.SYRIN SQ SCH ×2 (08:32→20:58)
[2020-06-23] MEDS: ACETAMINOPHEN 325 MG TABLET PO PRN (13:41)
--- NOTE | 2020-06-23 14:30 | NUR ---
Dr. Randolph in the unit to see patient. replaced mathew.
[2020-06-23] MEDS ORDERED: NEUTRA PHOS PACKET PO ONE (16:00)
--- NOTE | 2020-06-23 19:30 | NUR ---
Received report from nurse. Pt is COVID (+) with respiratory failure. Currently on mechanical vent while orally intubated @ AC= 30 TV 550 P=12 FiO2 @ 0% to titrate to keep O2 >92%. The patient is on Diprivan, Levophed, and Fentanyl Drips via the NHUNG PICC line. Assessment done and recorded in flow sheet.
[2020-06-23] MEDS: TAMSULOSIN HCL 0.4 MG CAP.SR.24H PO SCH (20:57)
[2020-06-23] MEDS: DOCUSATE SODIUM 100 MG CAPSULE PO SCH (20:57)
--- NOTE | 2020-06-23 22:00 | NUR ---
Levophed drip stopped @ 2000 and BP monitored q15 minutes since. SBP had been >90mmHg.
[2020-06-24] VITALS (30 sets, daily range): BP systolic 86–151; BP diastolic 49–100
[2020-06-24] MEDS: PROPOFOL 100 ML IV PRN ×7 (01:28→23:05)
[2020-06-24] MEDS: IPRATROPIUM/ALBUTEROL SULFATE 14.7 GM INHALER INH SCH ×4 (01:36→19:30)
[2020-06-24] MEDS: PIPERACILLIN SODIUM/TAZOBACTAM 3.37 G in IV DEXTROSE 5% 100 ML IV SCH ×3 (04:54→20:37)
[2020-06-24] MEDS: FENTANYL CITRAT IV 1,000 MCG in IV NORMAL SALINE 80 ML IV PRN ×2 (05:10→15:22)
[2020-06-24 05:47] LABS: BASOPHILS # (AUTO) 0.1 K/uL (0.0-8.0); BASOPHILS % (AUTO) 0.6 % (0.0-2.0); EOSINOPHILS # (AUTO) 0.2 K/uL (0.0-0.7); EOSINOPHILS % (AUTO) 1.9 % (0.0-7.0); HEMOGLOBIN 12.5 g/dL (12.5-16.3); LYMPHOCYTES # (AUTO) 0.9 K/uL (20.0-40.0); LYMPHOCYTES % (AUTO) 10.1 % (20.5-51.5); MEAN CORPUSCULAR HEMOGLOBIN 29.4 uug (23.8-33.4); MEAN CORPUSCULAR HGB CONC 33 g/dL (32.5-36.3); MEAN CORPUSCULAR VOLUME 89.8 fL (73.0-96.2); MONOCYTES # (AUTO) 0.2 K/uL (2.0-10.0); MONOCYTES % (AUTO) 2.6 % (0.0-11.0); NEUTROPHILS # (AUTO) 7.8 K/uL (1.8-8.9); NEUTROPHILS % (AUTO) 84.8 % (38.5-71.5); PLATELET COUNT (AUTO) 266 K/uL (152-348); RED BLOOD CELL COUNT(AUTO) 4.24 MIL/uL (4.06-5.63); WHITE BLOOD COUNT (AUTO) 9.2 K/uL (3.6-10.2)
[2020-06-24 06:00] LABS: CREATININE 0.7 mg/dL (0.6-1.3); MAGNESIUM 2.4 mg/dL (1.8-2.4); PHOSPHOROUS 2.9 mg/dL (2.5-4.9); POTASSIUM 4.8 mmol/L (3.5-5.1)
[2020-06-24] MEDS: OXYBUTYNIN XL 5 MG TABSR PO SCH (06:00)
[2020-06-24] MEDS: PANTOPRAZOLE SODIUM 40 MG TABLET.DR PO SCH (06:01)
--- NOTE | 2020-06-24 06:28 | NUR ---
The patient remains on same vent settings, saturation remained above 92%. On Zosyn IV ATB, Fentanyl and Diprivan drip via NHUNG PICC line. Diprivan drip titrated due to mild agitation. COVID-19 isolation maintained.
[2020-06-24] MEDS: CHOLECALCIFEROL 1,000 UNIT TABLET PO SCH (08:15)
[2020-06-24] MEDS: ASCORBIC ACID 500 MG TABLET PO SCH (08:15)
[2020-06-24] MEDS: ZINC SULFATE 220 MG CAPSULE PO SCH (08:15)
[2020-06-24] MEDS: ACIDOPHILUS/BULGARICUS CHEW TAB PO SCH ×2 (08:15→20:39)
[2020-06-24] MEDS: ENOXAPARIN SODIUM 60 MG/0.6 ML DISP.SYRIN SQ SCH ×2 (08:16→20:40)
[2020-06-24] MEDS: FINASTERIDE 5 MG TABLET PO SCH (08:16)
[2020-06-24 08:21] LABS: ABG HCO3 34.8 mmol/L; ABG PCO2 79.6 mmHg (35.0-45.0); ABG PH 7.258 (7.350-7.450); ABG PO2 82.6 mmHg (75.0-100.0); ABG SITE LEFT RADIAL; ABG TOTAL HEMOGLOBIN 13.4 G/dL (13.5-18.0); COHb 1.7 % (0.5-1.5); MetHb 0.3 % (0.0-1.5); O2Hb 93.6 % (94.0-97.0); VENT MODE VENT - A/C; VT, ABG 550 mL
[2020-06-24] MEDS: ALBUTEROL SULFATE 8 GM HFA.AER.AD IH PRN (09:43)
[2020-06-24] MEDS: IV D5 1/2 NS 1000 ML 1,000 ML IV PRN (13:00)
--- NOTE | 2020-06-24 20:00 | NUR ---
received intubated ac30/tv550/peep12 fio2 80%,suction via the ett and via mouth with small amt of thick secretions . on propofol for sedation and fentanyl.see flow sheet . tube feeding NGT on vital AF at 25 ML /HR tolerating . hob up . patient doesn't follow commands .sr on the heart monitor no s/s of pain . f/c to bsd.left arm piccline all 3 ports patent . will continue to monitor v/s and levels of comfort .
[2020-06-24] MEDS: DOCUSATE SODIUM 100 MG CAPSULE PO SCH (20:37)
[2020-06-24] MEDS: TAMSULOSIN HCL 0.4 MG CAP.SR.24H PO SCH (20:38)
--- NOTE | 2020-06-24 23:00 | NUR ---
turned and reposition patient ,hob up.offloaded back with pillow and heels off bed with pillows .
[2020-06-25] VITALS (23 sets, daily range): BP systolic 96–118; BP diastolic 55–70
[2020-06-25] MEDS: IPRATROPIUM/ALBUTEROL SULFATE 14.7 GM INHALER INH SCH ×4 (01:40→19:30)
[2020-06-25] MEDS: PROPOFOL 100 ML IV PRN ×12 (01:59→23:33)
[2020-06-25] MEDS: FENTANYL CITRAT IV 1,000 MCG in IV NORMAL SALINE 80 ML IV PRN ×3 (01:59→19:00)
[2020-06-25] MEDS: IV D5 1/2 NS 1000 ML 1,000 ML IV PRN ×2 (02:02→14:37)
[2020-06-25] MEDS ORDERED: PROPOFOL 100 ML ONE (03:56)
[2020-06-25 05:37] LABS: BASOPHILS % (AUTO) 0.6 % (0.0-2.0); EOSINOPHILS # (AUTO) 0.1 K/uL (0.0-0.7); EOSINOPHILS % (AUTO) 1.5 % (0.0-7.0); HEMATOCRIT 36.4 % (36.7-47.1); HEMOGLOBIN 11.8 g/dL (12.5-16.3); LYMPHOCYTES # (AUTO) 0.8 K/uL (20.0-40.0); LYMPHOCYTES % (AUTO) 11.4 % (20.5-51.5); MEAN CORPUSCULAR HEMOGLOBIN 29.3 uug (23.8-33.4); MEAN CORPUSCULAR HGB CONC 33 g/dL (32.5-36.3); MEAN CORPUSCULAR VOLUME 90.2 fL (73.0-96.2); MONOCYTES # (AUTO) 0.2 K/uL (2.0-10.0); MONOCYTES % (AUTO) 2.3 % (0.0-11.0); NEUTROPHILS # (AUTO) 6.1 K/uL (1.8-8.9); NEUTROPHILS % (AUTO) 84.2 % (38.5-71.5); PLATELET COUNT (AUTO) 243 K/uL (152-348); RED BLOOD CELL COUNT(AUTO) 4.03 MIL/uL (4.06-5.63); WHITE BLOOD COUNT (AUTO) 7.2 K/uL (3.6-10.2)
[2020-06-25] MEDS: PIPERACILLIN SODIUM/TAZOBACTAM 3.37 G in IV DEXTROSE 5% 100 ML IV SCH ×3 (05:43→20:07)
[2020-06-25] MEDS: OXYBUTYNIN XL 5 MG TABSR PO SCH (05:47)
[2020-06-25 05:53] LABS: ALANINE AMINOTRANSFERASE 38 U/L (16-63); ALKALINE PHOSPHATASE 68 U/L (50-136); ASPARTATE AMINOTRANSFERASE 29 U/L (15-37); BILIRUBIN,DIRECT 0.2 mg/dL (0.0-0.2); BILIRUBIN,TOTAL 0.4 mg/dL (0.2-1.0); CARBON DIOXIDE 34 mmol/L (21-32); CHLORIDE 100 mmol/L (98-107); CREATININE 0.6 mg/dL (0.6-1.3); GLUCOSE 143 mg/dL (74-106); MAGNESIUM 2.6 mg/dL (1.8-2.4); POTASSIUM 5.1 mmol/L (3.5-5.1); TOTAL PROTEIN, SERUM 6.3 g/dL (6.4-8.2)
[2020-06-25] MEDS: PANTOPRAZOLE SODIUM 40 MG TABLET.DR PO SCH (07:01)
[2020-06-25 07:43] LABS: CHOLESTEROL 145 mg/dL (<200); HDL CHOLESTEROL 31 mg/dL (40-60); TRIGLYCERIDES 303 MG/DL (30-150)
[2020-06-25 07:46] LABS: UREA NITROGEN, BLOOD 19 mg/dL (7-18)
[2020-06-25] MEDS: CHOLECALCIFEROL 1,000 UNIT TABLET PO SCH (08:49)
[2020-06-25] MEDS: FINASTERIDE 5 MG TABLET PO SCH (08:50)
[2020-06-25] MEDS: ASCORBIC ACID 500 MG TABLET PO SCH (08:50)
[2020-06-25] MEDS: ACIDOPHILUS/BULGARICUS CHEW TAB PO SCH ×2 (08:50→20:28)
[2020-06-25] MEDS: ZINC SULFATE 220 MG CAPSULE PO SCH (08:50)
[2020-06-25] MEDS: VITAL AF 1.2 1,000 ML LIQUID GT PRN (08:56)
[2020-06-25] MEDS: ENOXAPARIN SODIUM 120 MG/0.8 ML SYRINGE SQ SCH ×2 (09:02→20:36)
[2020-06-25 09:25] LABS: ABG BASE EXCESS 5.1 mmol/L; ABG HCO3 36.8 mmol/L; ABG PCO2 102.6 mmHg (35.0-45.0); ABG PH 7.173 (7.350-7.450); ABG PO2 62.9 mmHg (75.0-100.0); ABG SITE RIGHT RADIAL; ABG TOTAL HEMOGLOBIN 12.6 G/dL (13.5-18.0); COHb 1.7 % (0.5-1.5); MetHb 0.4 % (0.0-1.5); O2Hb 87.8 % (94.0-97.0); VENT MODE VENT - A/C; VT, ABG 550 mL
--- NOTE | 2020-06-25 09:41 | NUR ---
Called Dr. Randolph regarding ABG results. Awaiting return call.
--- NOTE | 2020-06-25 09:58 | NUR ---
Spoke with Dr. Randolph on the telephone and reported ABG results. New orders received.
--- NOTE | 2020-06-25 14:29 | NUR ---
Dr. Randolph in the unit to see & assess pt. report given.
--- NOTE | 2020-06-25 19:30 | NUR ---
Report received. Patient on isolation for COVID 19, orally intubated and to mechanical ventilator settings: AC=30, QN=578 ml, FIO2=80%, PEEP=15. On continuous Diprivan and Fentanyl drips via NHUNG PICC line; see IV spread sheet for rates/dosages. Assessment done and documented.
[2020-06-25] MEDS: TAMSULOSIN HCL 0.4 MG CAP.SR.24H PO SCH (20:28)
[2020-06-25] MEDS: DOCUSATE SODIUM 100 MG CAPSULE PO SCH (20:28)
[2020-06-25] MEDS: ACETAMINOPHEN 325 MG TABLET PO PRN (21:09)
[2020-06-26] VITALS (24 sets, daily range): BP systolic 90–109; BP diastolic 54–67
[2020-06-26] MEDS: IPRATROPIUM/ALBUTEROL SULFATE 14.7 GM INHALER INH SCH ×4 (01:22→19:59)
[2020-06-26] MEDS: PROPOFOL 100 ML IV PRN ×11 (03:20→22:36)
[2020-06-26] MEDS: PIPERACILLIN SODIUM/TAZOBACTAM 3.37 G in IV DEXTROSE 5% 100 ML IV SCH ×3 (03:27→19:43)
[2020-06-26 05:15] LABS: BASOPHILS # (AUTO) 0.1 K/uL (0.0-8.0); BASOPHILS % (AUTO) 1.4 % (0.0-2.0); EOSINOPHILS # (AUTO) 0.1 K/uL (0.0-0.7); EOSINOPHILS % (AUTO) 1.1 % (0.0-7.0); HEMATOCRIT 33.8 % (36.7-47.1); HEMOGLOBIN 10.9 g/dL (12.5-16.3); LYMPHOCYTES # (AUTO) 0.7 K/uL (20.0-40.0); LYMPHOCYTES % (AUTO) 10.4 % (20.5-51.5); MEAN CORPUSCULAR HEMOGLOBIN 29.7 uug (23.8-33.4); MEAN CORPUSCULAR HGB CONC 32 g/dL (32.5-36.3); MEAN CORPUSCULAR VOLUME 91.7 fL (73.0-96.2); MONOCYTES # (AUTO) 0.4 K/uL (2.0-10.0); MONOCYTES % (AUTO) 5.7 % (0.0-11.0); NEUTROPHILS # (AUTO) 5.4 K/uL (1.8-8.9); NEUTROPHILS % (AUTO) 81.4 % (38.5-71.5); PLATELET COUNT (AUTO) 242 K/uL (152-348); RED BLOOD CELL COUNT(AUTO) 3.68 MIL/uL (4.06-5.63); WHITE BLOOD COUNT (AUTO) 6.7 K/uL (3.6-10.2)
[2020-06-26 05:39] LABS: CREATININE 0.9 mg/dL (0.6-1.3); MAGNESIUM 2.7 mg/dL (1.8-2.4); PHOSPHOROUS 4.5 mg/dL (2.5-4.9); POTASSIUM 5.9 mmol/L (3.5-5.1)
[2020-06-26] MEDS: FENTANYL CITRAT IV 1,000 MCG in IV NORMAL SALINE 80 ML IV PRN ×3 (05:59→21:35)
[2020-06-26] MEDS: OXYBUTYNIN XL 5 MG TABSR PO SCH (06:00)
[2020-06-26] MEDS: PANTOPRAZOLE SODIUM 40 MG TABLET.DR PO SCH (06:12)
--- NOTE | 2020-06-26 07:27 | NUR ---
Remains on same vent settings: AC=30, EJ=125, TV=80%, PEEP=15; O2 saturations above 94%. Tolerating NGT feedings well. Still on Diprivan and Fentanyl drips via NHUNG PICC line.
[2020-06-26] MEDS: ACIDOPHILUS/BULGARICUS CHEW TAB PO SCH ×2 (08:29→20:29)
[2020-06-26] MEDS: ASCORBIC ACID 500 MG TABLET PO SCH (08:29)
[2020-06-26] MEDS: CHOLECALCIFEROL 1,000 UNIT TABLET PO SCH (08:29)
[2020-06-26] MEDS: FINASTERIDE 5 MG TABLET PO SCH (08:29)
[2020-06-26] MEDS: ZINC SULFATE 220 MG CAPSULE PO SCH (08:29)
[2020-06-26] MEDS: ENOXAPARIN SODIUM 120 MG/0.8 ML SYRINGE SQ SCH ×2 (08:37→20:33)
[2020-06-26 08:48] LABS: ABG BASE EXCESS 4.4 mmol/L; ABG HCO3 35.6 mmol/L; ABG PH 7.206 (7.350-7.450); ABG PO2 84.4 mmHg (75.0-100.0); ABG SITE LEFT RADIAL; COHb 2.2 % (0.5-1.5); MetHb 0.3 % (0.0-1.5); O2Hb 93.5 % (94.0-97.0); VENT MODE Press. Reg. Vol. Con; VT, ABG 550 mL
[2020-06-26] MEDS ORDERED: OXYBUTYNIN CHLORIDE 5 MG TABLET PO SCH (09:00)
[2020-06-26] MEDS ORDERED: SODIUM POLYSTYRENE SULFONATE 15 G/60 ML LIQUID UDC PO ONE ×2 (10:00→18:45)
[2020-06-26] MEDS ORDERED: FUROSEMIDE 40 MG/4 ML VIAL IV ONE (12:00)
--- NOTE | 2020-06-26 12:02 | NUR ---
PT RECEIVED ON VENT WITH 7.5 ETT SECURED AT 24CM BY LIP LINE. VENT SETTINGS PRVC AC30/550/80%/+15 PEEP. ROUTINE ABG DONE AND SEEN BY DR MOSES. NO CHANGES MADE AT THIS TIME. WILL CONTINUE TO MONITOR.
--- NOTE | 2020-06-26 12:16 | NUR ---
DOCTOR AURELIA IN THE UNIT TO SEE PATIENT. WILL CONSIDER SWITCHING TO VERSED OR ANOTHER SEDATIVE ONCE ABG IS BETTER. IS AWARE TRIGLYCERIDES ARE ELEVATED.
[2020-06-26] MEDS: ACETAMINOPHEN 325 MG TABLET PO PRN ×2 (12:32→18:25)
--- NOTE | 2020-06-26 18:15 | NUR ---
PT TOLERATED CURRENT VENT SETTINGS FINE WITHOUT ANY EPISODE OF RESPIRATORY DISTRESS.NO VENT SETTING CHANGES MADE. PT HAD LARGE AMOUNT OF THICK YELLOW SECRETIONS. ORAL CARE WAS DONE IN THE BEGINNING OF THE SHIFT. THE HEAD OF THE BED WAS MAINTAINED ABOVE 35 DEGREE ANGLE THROUGHOUT SHIFT.
[2020-06-26 18:26] LABS: CREATININE 0.8 mg/dL (0.6-1.3); POTASSIUM 5.5 mmol/L (3.5-5.1)
[2020-06-26] MEDS ORDERED: FUROSEMIDE 20 MG/2 ML VIAL IV ONE (18:45)
--- NOTE | 2020-06-26 20:00 | NUR ---
RECEIVED PT ORALLY INTUBATED TO VENT W/ SETTINGS OF AC-30, TV-550, FIO2-80%, PEEP-+15 W/ O2 SAT OF 97%. ON DIPRIVAN DRIP @ 75MCQ/KG/MIN VIA PICC LINE ON NHUNG. ON FENTANYL DRIP @ 0.1MG/HR. D51/2 NS @ 35CC/HR. NGT ON L NARE CHECKED PLACEMENT & CHECKED RESIDUAL 5CC NOTED. ON TUBE FDG OF VITAL AF 1.2 @ 25CC/HR. BP STABLE. KEPT HOB ELEVATED
[2020-06-26] MEDS: TAMSULOSIN HCL 0.4 MG CAP.SR.24H PO SCH (20:29)
[2020-06-26] MEDS: DOCUSATE SODIUM 100 MG CAPSULE PO SCH (20:29)
[2020-06-26] MEDS: OXYBUTYNIN CHLORIDE 5 MG TABLET GT SCH (20:30)
--- NOTE | 2020-06-26 22:00 | NUR ---
HS CARE DONE. SUCTIONED. SUCTIONED ORALLY & VIA ETT. KEPT HOB ELEVATED.
[2020-06-27] VITALS (24 sets, daily range): BP systolic 80–119; BP diastolic 46–80
[2020-06-27] MEDS: IPRATROPIUM/ALBUTEROL SULFATE 14.7 GM INHALER INH SCH ×4 (00:30→20:49)
[2020-06-27] MEDS: PROPOFOL 100 ML IV PRN ×9 (00:48→23:07)
--- NOTE | 2020-06-27 04:00 | NUR ---
AM CARE DONE. ORAL CARE DONE.
[2020-06-27] MEDS: PIPERACILLIN SODIUM/TAZOBACTAM 3.37 G in IV DEXTROSE 5% 100 ML IV SCH ×3 (04:05→20:18)
[2020-06-27] MEDS: ACETAMINOPHEN 325 MG TABLET PO PRN ×2 (04:42→18:16)
[2020-06-27] MEDS: FENTANYL CITRAT IV 1,000 MCG in IV NORMAL SALINE 80 ML IV PRN ×2 (05:33→15:47)
[2020-06-27] MEDS: PANTOPRAZOLE ORAL SUSPENSION 40 MG SUSPDR.PKT GT SCH (06:20)
[2020-06-27 06:25] LABS: BILIRUBIN,TOTAL 0.4 mg/dL (0.2-1.0); CREATININE 0.8 mg/dL (0.6-1.3); MAGNESIUM 2.6 mg/dL (1.8-2.4); PHOSPHOROUS 4.3 mg/dL (2.5-4.9); POTASSIUM 4.8 mmol/L (3.5-5.1); TOTAL PROTEIN, SERUM 6.4 g/dL (6.4-8.2)
[2020-06-27 06:27] LABS: BASOPHILS # (AUTO) 0.1 K/uL (0.0-8.0); EOSINOPHILS # (AUTO) 0.1 K/uL (0.0-0.7); EOSINOPHILS % (AUTO) 0.8 % (0.0-7.0); HEMATOCRIT 32.4 % (36.7-47.1); HEMOGLOBIN 10.4 g/dL (12.5-16.3); LYMPHOCYTES # (AUTO) 0.7 K/uL (20.0-40.0); MEAN CORPUSCULAR HEMOGLOBIN 29.5 uug (23.8-33.4); MEAN CORPUSCULAR HGB CONC 32 g/dL (32.5-36.3); MEAN CORPUSCULAR VOLUME 92.2 fL (73.0-96.2); MONOCYTES # (AUTO) 0.5 K/uL (2.0-10.0); NEUTROPHILS % (AUTO) 84.2 % (38.5-71.5); PLATELET COUNT (AUTO) 235 K/uL (152-348); RED BLOOD CELL COUNT(AUTO) 3.51 MIL/uL (4.06-5.63); WHITE BLOOD COUNT (AUTO) 8.3 K/uL (3.6-10.2)
--- NOTE | 2020-06-27 07:59 | NUR ---
Informed Kavon HERRON that fentanyl drip was not scanned at 183. She scanned that bag at 2134.
[2020-06-27] MEDS: ACIDOPHILUS/BULGARICUS CHEW TAB PO SCH ×2 (08:26→20:14)
[2020-06-27] MEDS: CHOLECALCIFEROL 1,000 UNIT TABLET PO SCH (08:27)
[2020-06-27] MEDS: ASCORBIC ACID 500 MG TABLET PO SCH (08:27)
[2020-06-27] MEDS: OXYBUTYNIN CHLORIDE 5 MG TABLET GT SCH ×2 (08:27→20:16)
[2020-06-27] MEDS: ZINC SULFATE 220 MG CAPSULE PO SCH (08:27)
[2020-06-27] MEDS: FINASTERIDE 5 MG TABLET PO SCH (08:27)
[2020-06-27] MEDS: ENOXAPARIN SODIUM 120 MG/0.8 ML SYRINGE SQ SCH ×2 (08:32→20:15)
[2020-06-27 08:58] LABS: ABG HCO3 41.9 mmol/L; ABG PCO2 101.5 mmHg (35.0-45.0); ABG PH 7.234 (7.350-7.450); ABG PO2 97.4 mmHg (75.0-100.0); ABG SITE RIGHT RADIAL; ABG TOTAL HEMOGLOBIN 11.5 G/dL (13.5-18.0); COHb 1.6 % (0.5-1.5); MetHb 0.3 % (0.0-1.5); O2Hb 95.1 % (94.0-97.0); VENT MODE VENT PRVC; VT, ABG 550 mL
--- NOTE | 2020-06-27 09:00 | NUR ---
patient has low grade fever 99.8. tylenol given and placed ice bags for cooling measures.
--- NOTE | 2020-06-27 09:20 | NUR ---
Patient had massive bowel movement loose and placed flexi seal.
--- NOTE | 2020-06-27 09:23 | NUR ---
patient went into uncontrolled afib. called cardiology. Received orders from Dr. Danielson to start cardizem junie.
[2020-06-27] MEDS ORDERED: DILTIAZEM HCL IV 125 MG in IV NORMAL SALINE 100 ML IV PRN ×3 (09:30→16:45)
--- NOTE | 2020-06-27 11:40 | NUR ---
Informed Dr. Handy patient already on 12mg cardizem and continues to be uncontrolled afib new onset. ordered to switch to amiodarone with bolus per protocol.
[2020-06-27] MEDS ORDERED: AMIODARONE HCL IV 150 MG in IV DEXTROSE 5% 100 ML IV ONE (12:30)
[2020-06-27] MEDS: AMIODARONE HCL IV 450 MG in IV DEXTROSE 5% 250 ML IV PRN ×2 (13:18→18:23)
[2020-06-27] MEDS: IV D5 1/2 NS 1000 ML 1,000 ML IV PRN (15:21)
--- NOTE | 2020-06-27 15:51 | NUR ---
Informed Dr. Handy that patient continues to be in uncontrolled afib after bolus and drip. heart rate in 140s Addendum: 06/27/20 at 1651 by HARI HENRY RN BOLUS AND DRIP OF AMIODARONE.
--- NOTE | 2020-06-27 16:14 | NUR ---
DR GALEAS ORDERED TO RESTART CARDIZEM TOO AND TITRATE NEEDED.
--- NOTE | 2020-06-27 16:30 | NUR ---
patient continues to have higher fever of 101.3. Given tylenol again and replaced icebags for cooling measures.
[2020-06-27 18:31] LABS: CREATININE 0.9 mg/dL (0.6-1.3); POTASSIUM 4.5 mmol/L (3.5-5.1)
[2020-06-27] MEDS: TAMSULOSIN HCL 0.4 MG CAP.SR.24H PO SCH (20:14)
[2020-06-27] MEDS: DOCUSATE SODIUM 100 MG CAPSULE PO SCH (20:18)
[2020-06-28] VITALS (43 sets, daily range): BP systolic 72–137; BP diastolic 39–82
[2020-06-28] MEDS: PROPOFOL 100 ML IV PRN ×10 (00:59→22:24)
[2020-06-28] MEDS: IPRATROPIUM/ALBUTEROL SULFATE 14.7 GM INHALER INH SCH ×4 (01:05→19:30)
[2020-06-28] MEDS: FENTANYL CITRAT IV 1,000 MCG in IV NORMAL SALINE 80 ML IV PRN ×3 (02:16→21:45)
[2020-06-28] MEDS: NOREPINEPHRINE BITARTRATE 8 MG in IV NORMAL SALINE 242 ML IV PRN ×3 (04:46→22:23)
[2020-06-28] MEDS: PIPERACILLIN SODIUM/TAZOBACTAM 3.37 G in IV DEXTROSE 5% 100 ML IV SCH (04:53)
[2020-06-28 05:53] LABS: BASOPHILS # (AUTO) 0.1 K/uL (0.0-8.0); BASOPHILS % (AUTO) 0.9 % (0.0-2.0); EOSINOPHILS # (AUTO) 0.1 K/uL (0.0-0.7); EOSINOPHILS % (AUTO) 0.7 % (0.0-7.0); HEMATOCRIT 32.3 % (36.7-47.1); HEMOGLOBIN 10.3 g/dL (12.5-16.3); LYMPHOCYTES % (AUTO) 9.2 % (20.5-51.5); MEAN CORPUSCULAR HEMOGLOBIN 29.8 uug (23.8-33.4); MEAN CORPUSCULAR HGB CONC 32 g/dL (32.5-36.3); MEAN CORPUSCULAR VOLUME 93.2 fL (73.0-96.2); MONOCYTES # (AUTO) 1.1 K/uL (2.0-10.0); MONOCYTES % (AUTO) 9.7 % (0.0-11.0); NEUTROPHILS # (AUTO) 8.7 K/uL (1.8-8.9); NEUTROPHILS % (AUTO) 79.5 % (38.5-71.5); PLATELET COUNT (AUTO) 239 K/uL (152-348); RED BLOOD CELL COUNT(AUTO) 3.46 MIL/uL (4.06-5.63); WHITE BLOOD COUNT (AUTO) 10.9 K/uL (3.6-10.2)
[2020-06-28 06:07] LABS: CREATININE 1.6 mg/dL (0.6-1.3); MAGNESIUM 2.5 mg/dL (1.8-2.4); PHOSPHOROUS 5.7 mg/dL (2.5-4.9); POTASSIUM 4.4 mmol/L (3.5-5.1)
[2020-06-28] MEDS: ZINC SULFATE 220 MG CAPSULE PO SCH (07:54)
[2020-06-28] MEDS: CHOLECALCIFEROL 1,000 UNIT TABLET PO SCH (07:54)
[2020-06-28] MEDS: FINASTERIDE 5 MG TABLET PO SCH (07:54)
[2020-06-28] MEDS: ACIDOPHILUS/BULGARICUS CHEW TAB PO SCH ×2 (07:54→20:50)
[2020-06-28] MEDS: ASCORBIC ACID 500 MG TABLET PO SCH (07:54)
[2020-06-28] MEDS: PANTOPRAZOLE ORAL SUSPENSION 40 MG SUSPDR.PKT GT SCH (07:54)
[2020-06-28] MEDS: OXYBUTYNIN CHLORIDE 5 MG TABLET GT SCH ×2 (07:56→20:53)
[2020-06-28] MEDS: ENOXAPARIN SODIUM 120 MG/0.8 ML SYRINGE SQ SCH ×2 (07:57→20:56)
[2020-06-28 08:54] LABS: ABG BASE EXCESS 9.7 mmol/L; ABG HCO3 40.2 mmol/L; ABG PH 7.231 (7.350-7.450); ABG PO2 98.2 mmHg (75.0-100.0); ABG SITE LEFT RADIAL; ABG TOTAL HEMOGLOBIN 10.9 G/dL (13.5-18.0); MetHb 0.2 % (0.0-1.5); O2Hb 94.9 % (94.0-97.0); VENT MODE VENT - A/C; VT, ABG 550 mL
[2020-06-28] MEDS: AMIODARONE HCL IV 450 MG in IV DEXTROSE 5% 250 ML IV PRN ×2 (08:57→20:52)
--- NOTE | 2020-06-28 10:32 | NUR ---
Dr. Nguyen here to see pt. Full report given. New orders received.
[2020-06-28 11:01] LABS: *BILIRUBIN,URIN 1+ (NEGATIVE); *BLOOD, URINE 3+ (NEGATIVE); *CLARITY,URINE CLOUDY (CLEAR); *COLOR,URINE YELLOW (YELLOW); *KETONES,URINE NEGATIVE (NEGATIVE); LEUKOCYTE ESTERASE ,URINE NEGATIVE (NEGATIVE); NITRITE, URINE NEGATIVE (NEGATIVE); PH,URINE 5.5 (5.0-8.0); UGLUCOSE NEGATIVE (NEGATIVE)
[2020-06-28] MEDS: CEFEPIME HCL 2 G in IV DEXTROSE 5% 100 ML IV SCH ×2 (11:39→23:38)
[2020-06-28 12:17] LABS: *CREATININE,URINE 134.2 mg/dL (30-125); *URINE TOTAL PROTEIN RANDOM 149.7 mg/dL (<150/24HR)
--- NOTE | 2020-06-28 15:15 | NUR ---
Dr. Randolph here to see pt. Full report given. New orders received.
[2020-06-28 16:33] LABS: BACTERIA,URINE FEW /HPF (NONE SEEN); RBC,URINE 20-50 /HPF (0-3); SQUAMOUS EPITHELIAL CELL,UR FEW /HPF (NONE SEEN)
--- NOTE | 2020-06-28 19:15 | NUR ---
received patient sedated 60 mcg propofol , fentanyl at 100 mcg , levophed at 0. 1 mcg , amiodrone at 0.5 mg , afib at 115 , flexi seal and picc line intact , ngt with tf of vital af 25 ml . placement and residual checked , no fever ac 30 tv 550 p 15 at 80 % fio 2
[2020-06-28] MEDS: DOCUSATE SODIUM 100 MG CAPSULE PO SCH (20:50)
[2020-06-28] MEDS: TAMSULOSIN HCL 0.4 MG CAP.SR.24H PO SCH (20:50)
[2020-06-29] VITALS (91 sets, daily range): BP systolic 82–155; BP diastolic 41–90
[2020-06-29] MEDS: PROPOFOL 100 ML IV PRN ×10 (00:41→20:47)
[2020-06-29] MEDS: IPRATROPIUM/ALBUTEROL SULFATE 14.7 GM INHALER INH SCH ×4 (01:00→19:45)
[2020-06-29 05:35] LABS: BASOPHILS # (AUTO) 0.1 K/uL (0.0-8.0); BASOPHILS % (AUTO) 0.9 % (0.0-2.0); EOSINOPHILS # (AUTO) 0.1 K/uL (0.0-0.7); EOSINOPHILS % (AUTO) 0.6 % (0.0-7.0); HEMATOCRIT 32.2 % (36.7-47.1); HEMOGLOBIN 10.3 g/dL (12.5-16.3); LYMPHOCYTES % (AUTO) 8.5 % (20.5-51.5); MEAN CORPUSCULAR HEMOGLOBIN 29.7 uug (23.8-33.4); MEAN CORPUSCULAR HGB CONC 32 g/dL (32.5-36.3); MEAN CORPUSCULAR VOLUME 92.8 fL (73.0-96.2); MONOCYTES # (AUTO) 0.9 K/uL (2.0-10.0); MONOCYTES % (AUTO) 7.6 % (0.0-11.0); NEUTROPHILS # (AUTO) 9.4 K/uL (1.8-8.9); NEUTROPHILS % (AUTO) 82.4 % (38.5-71.5); PLATELET COUNT (AUTO) 290 K/uL (152-348); RED BLOOD CELL COUNT(AUTO) 3.47 MIL/uL (4.06-5.63); WHITE BLOOD COUNT (AUTO) 11.4 K/uL (3.6-10.2)
[2020-06-29 05:45] LABS: BILIRUBIN,TOTAL 0.6 mg/dL (0.2-1.0); CREATININE 2.2 mg/dL (0.6-1.3); MAGNESIUM 2.7 mg/dL (1.8-2.4); PHOSPHOROUS 6.3 mg/dL (2.5-4.9); POTASSIUM 4.8 mmol/L (3.5-5.1); TOTAL PROTEIN, SERUM 6.9 g/dL (6.4-8.2)
[2020-06-29] MEDS: PANTOPRAZOLE ORAL SUSPENSION 40 MG SUSPDR.PKT GT SCH (05:58)
[2020-06-29] MEDS: FENTANYL CITRAT IV 1,000 MCG in IV NORMAL SALINE 80 ML IV PRN ×2 (06:54→17:00)
--- NOTE | 2020-06-29 08:24 | NUR ---
CLEANING TECHNICIAN Randi here to see & assess pt. report given
[2020-06-29] MEDS: ACIDOPHILUS/BULGARICUS CHEW TAB PO SCH ×2 (08:28→20:50)
[2020-06-29] MEDS: OXYBUTYNIN CHLORIDE 5 MG TABLET GT SCH ×2 (08:28→21:13)
[2020-06-29] MEDS: ASCORBIC ACID 500 MG TABLET PO SCH (08:28)
[2020-06-29] MEDS: ZINC SULFATE 220 MG CAPSULE PO SCH (08:28)
[2020-06-29] MEDS: FINASTERIDE 5 MG TABLET PO SCH (08:28)
[2020-06-29] MEDS: CHOLECALCIFEROL 1,000 UNIT TABLET PO SCH (08:28)
[2020-06-29] MEDS: ENOXAPARIN SODIUM 120 MG/0.8 ML SYRINGE SQ SCH ×2 (08:30→20:49)
[2020-06-29] MEDS: NOREPINEPHRINE BITARTRATE 8 MG in IV NORMAL SALINE 242 ML IV PRN ×3 (09:05→21:42)
[2020-06-29] MEDS: AMIODARONE HCL IV 450 MG in IV DEXTROSE 5% 250 ML IV PRN ×2 (09:47→21:43)
[2020-06-29 10:07] LABS: ABG BASE EXCESS 2.4 mmol/L; ABG PH 7.168 (7.350-7.450); ABG PO2 98.5 mmHg (75.0-100.0); ABG SITE RIGHT RADIAL; ABG TOTAL HEMOGLOBIN 10.9 G/dL (13.5-18.0); COHb 1.6 % (0.5-1.5); MetHb 0.4 % (0.0-1.5); VENT MODE VENT - A/C PRVC; VT, ABG 550 mL
--- NOTE | 2020-06-29 11:05 | NUR ---
Spoke with Susie Moyer (sister) on the telephone and updated with plan of care. Also spoke with sister regarding pt's code status and agreed to put pt on DNR status. MD also notified and made aware.
--- NOTE | 2020-06-29 11:15 | NUR ---
Nephro came by to see pt. full report given
[2020-06-29] MEDS: CEFEPIME HCL 2 G in IV DEXTROSE 5% 100 ML IV SCH (11:40)
--- NOTE | 2020-06-29 13:28 | NUR ---
New white inserted
[2020-06-29] MEDS ORDERED: FUROSEMIDE 40 MG/4 ML VIAL IV ONE (14:45)
--- NOTE | 2020-06-29 14:50 | NUR ---
RAFAEL Hendrix and Dr. Randolph in the unit to see and assess pt. full report given. MD aware of ABG results and also informed of new code status of DNR
[2020-06-29] MEDS: VITAL AF 1.2 1,000 ML LIQUID GT PRN (15:11)
--- NOTE | 2020-06-29 19:10 | NUR ---
received patient sedated , vent settings ac 30 tv 550 p 15 , fio2 80 % , ngt vital af 25 ml placement check and residual check , on levophed 0.2 mcg , fentanyl 100 mcg , amiodarone at 0.5 mg , propofol at 60 mcg , picc line and white and flexi seal intact , no fever
[2020-06-29] MEDS: TAMSULOSIN HCL 0.4 MG CAP.SR.24H PO SCH (20:50)
[2020-06-29] MEDS: DOCUSATE SODIUM 100 MG CAPSULE PO SCH (20:50)
--- NOTE | 2020-06-29 22:30 | NUR ---
spoke to sister angelina , update given on patient's condition
--- NOTE | 2020-06-29 23:50 | NUR ---
, received order of neosynephrine
[2020-06-30] VITALS (31 sets, daily range): BP systolic 44–142; BP diastolic 23–89
[2020-06-30] MEDS ORDERED: PHENYLEPHRINE IV 50 MG in IV NORMAL SALINE 245 ML IV PRN ×2
[2020-06-30] MEDS: CEFEPIME HCL 2 G in IV DEXTROSE 5% 100 ML IV SCH (00:01)
[2020-06-30] MEDS: NOREPINEPHRINE BITARTRATE 8 MG in IV NORMAL SALINE 242 ML IV PRN ×4 (00:02→09:01)
[2020-06-30] MEDS: PROPOFOL 100 ML IV PRN ×4 (01:13→08:15)
[2020-06-30] MEDS: IPRATROPIUM/ALBUTEROL SULFATE 14.7 GM INHALER INH SCH ×2 (01:30→08:29)
[2020-06-30] MEDS ORDERED: NOREPINEPHRINE BITARTRATE 4 MG/4 ML VIAL IV ONE ×4 (02:04→06:17)
[2020-06-30] MEDS: FENTANYL CITRAT IV 1,000 MCG in IV NORMAL SALINE 80 ML IV PRN (02:31)
[2020-06-30 05:23] LABS: BASOPHILS # (AUTO) 0.2 K/uL (0.0-8.0); BASOPHILS % (AUTO) 1.2 % (0.0-2.0); EOSINOPHILS % (AUTO) 0.2 % (0.0-7.0); HEMOGLOBIN 10.5 g/dL (12.5-16.3); LYMPHOCYTES # (AUTO) 0.9 K/uL (20.0-40.0); MEAN CORPUSCULAR HEMOGLOBIN 29.7 uug (23.8-33.4); MEAN CORPUSCULAR HGB CONC 32 g/dL (32.5-36.3); MONOCYTES # (AUTO) 1.2 K/uL (2.0-10.0); MONOCYTES % (AUTO) 8.4 % (0.0-11.0); NEUTROPHILS # (AUTO) 12.2 K/uL (1.8-8.9); NEUTROPHILS % (AUTO) 84.2 % (38.5-71.5); PLATELET COUNT (AUTO) 355 K/uL (152-348); RED BLOOD CELL COUNT(AUTO) 3.55 MIL/uL (4.06-5.63); WHITE BLOOD COUNT (AUTO) 14.4 K/uL (3.6-10.2)
--- NOTE | 2020-06-30 05:35 | NUR ---
diprivan and fentanyl and amiodarone were turned off due to low blood pressure and low heart rate , levophed is on at 1 mcg
[2020-06-30 05:56] LABS: CREATININE 4.4 mg/dL (0.6-1.3); MAGNESIUM 2.7 mg/dL (1.8-2.4); POTASSIUM 5.6 mmol/L (3.5-5.1)
[2020-06-30 05:57] LABS: PHOSPHOROUS 9.6 mg/dL (2.5-4.9)
[2020-06-30] MEDS ORDERED: ATROPINE SULFATE 1 MG/10 ML DISP.SYRIN IV ONE (06:00)
[2020-06-30] MEDS: PANTOPRAZOLE ORAL SUSPENSION 40 MG SUSPDR.PKT GT SCH (07:43)
--- NOTE | 2020-06-30 07:45 | NUR ---
Received pt on vent settings AC 30 TV 550 Peep 15, FiO2 80%. pt maxed out on Levophen @1mcg/kg/min, Amio 0.5mg, Propofol 60, Fentanyl 100. Per report, pt was given one dose of atropine last night. Code status: DNR.
[2020-06-30] MEDS: ENOXAPARIN SODIUM 120 MG/0.8 ML SYRINGE SQ SCH (08:12)
[2020-06-30] MEDS: OXYBUTYNIN CHLORIDE 5 MG TABLET GT SCH (08:16)
[2020-06-30] MEDS: CHOLECALCIFEROL 1,000 UNIT TABLET PO SCH (08:17)
[2020-06-30] MEDS: ZINC SULFATE 220 MG CAPSULE PO SCH (08:17)
[2020-06-30] MEDS: FINASTERIDE 5 MG TABLET PO SCH (08:17)
[2020-06-30] MEDS: ACIDOPHILUS/BULGARICUS CHEW TAB PO SCH (08:17)
[2020-06-30] MEDS: ASCORBIC ACID 500 MG TABLET PO SCH (08:17)
[2020-06-30] MEDS ORDERED: SODIUM POLYSTYRENE SULFONATE 15 G/60 ML LIQUID UDC PO ONE (08:30)
--- NOTE | 2020-06-30 09:32 | NUR ---
Dr. Nguyen in the unit to see pt. with new orders. report given.
[2020-06-30] MEDS: ACETAMINOPHEN 325 MG TABLET PO PRN (09:36)
[2020-06-30 09:41] LABS: ABG BASE EXCESS -6.5 mmol/L; ABG PCO2 68.4 mmHg (35.0-45.0); ABG PH 7.144 (7.350-7.450); ABG PO2 66.9 mmHg (75.0-100.0); ABG SITE RIGHT RADIAL; ABG TOTAL HEMOGLOBIN 10.3 G/dL (13.5-18.0); COHb 2.2 % (0.5-1.5); MetHb 0.4 % (0.0-1.5); O2Hb 89.6 % (94.0-97.0); VENT MODE VENT - A/C; VT, ABG 550 mL
--- NOTE | 2020-06-30 10:07 | NUR ---
Called Dr. Randolph regarding abnormal blood gas results with no new orders.
--- NOTE | 2020-06-30 10:11 | NUR ---
SHEMAR Bryan in the unit to see & assess pt. report given
[2020-06-30] MEDS ORDERED: NOREPINEPHRINE BITARTRATE 32 MG in IV NORMAL SALINE 218 ML IV PRN (10:15)
[2020-06-30] MEDS ORDERED: AMIODARONE HCL 200 MG TABLET PO SCH (10:30)
--- NOTE | 2020-06-30 10:35 | NUR ---
patient apneic for 5 minutes. pupils fixed and dilated.no audible heart tones, breath sounds for 1 minute. no palpable pulses for 1 minute. no corneal reflexes. patient pronounced at 1035am. physicians notified
--- NOTE | 2020-06-30 10:40 | NUR ---
GOPAL Reese called sister Susie Moyer to notify of patient's expiration date and time. at this time, consent for release of body obtained by GOPAL Hernandez and GOPAL Hernandez. as stated by sister, all clothes should be thrown away, other valuables/belongings will be returned to sister.
--- NOTE | 2020-06-30 10:40 | NUR ---
attending physician and all consulting Drs notified of patient expiration. nursing [employer] skilled [employer] supervisor notified of expiration of patient and informed
--- NOTE | 2020-06-30 11:01 | NUR ---
[facility] called and notified of . Spoke to Judith, case #[id number]. As stated, pt not a candidate for any organ donation due to covid 19 positive
== END 2020-06-30 14:30 | disposition expired | DRG 870 ==
LOC: ER 10:52 → TRANSITION 16:58 → TELE3 23:30 → CCU 06-20 17:04
PROVIDERS: ADMIT Internal Medicine; ATTEND Nurse Practitioner Acute Care
PROC: XW033E5 Introduction of Remdesivir Anti-infective into Peripheral Vein, Percutaneous Approach, New Technology Group 5 (ICD-10-PCS; principal; 2020-06-12)
PROC: 5A09557 Assistance with Respiratory Ventilation, Greater than 96 Consecutive Hours, Continuous Positive Airway Pressure (ICD-10-PCS; 2020-06-15)
PROC: XW033H5 Introduction of Tocilizumab into Peripheral Vein, Percutaneous Approach, New Technology Group 5 (ICD-10-PCS; 2020-06-16)
PROC: XW13325 Transfusion of Convalescent Plasma (Nonautologous) into Peripheral Vein, Percutaneous Approach, New Technology Group 5 (ICD-10-PCS; 2020-06-18)
PROC: 5A1955Z Respiratory Ventilation, Greater than 96 Consecutive Hours (ICD-10-PCS; 2020-06-20)
PROC: 0BH17EZ Insertion of Endotracheal Airway into Trachea, Via Natural or Artificial Opening (ICD-10-PCS; 2020-06-20)
PROC: 02HV33Z Insertion of Infusion Device into Superior Vena Cava, Percutaneous Approach (ICD-10-PCS; 2020-06-21)
PROC: B548ZZA Ultrasonography of Superior Vena Cava, Guidance (ICD-10-PCS; 2020-06-21)
DX: A41.89 Other specified sepsis (principal); U07.1 COVID-19; J96.01 Acute respiratory failure with hypoxia; J12.82 Pneumonia due to coronavirus disease 2019; J96.02 Acute respiratory failure with hypercapnia; I50.31 Acute diastolic (congestive) heart failure; N17.0 Acute kidney failure with tubular necrosis; R65.21 Severe sepsis with septic shock; Z68.41 Body mass index [BMI] 40.0-44.9, adult; D68.59 Other primary thrombophilia; E46 Unspecified protein-calorie malnutrition; E87.2 Acidosis; E66.01 Morbid (severe) obesity due to excess calories; A08.4 Viral intestinal infection, unspecified; D64.9 Anemia, unspecified; E78.5 Hyperlipidemia, unspecified; E87.5 Hyperkalemia; I11.0 Hypertensive heart disease with heart failure; I48.0 Paroxysmal atrial fibrillation; K40.20 Bilateral inguinal hernia, without obstruction or gangrene, not specified as recurrent; N20.0 Calculus of kidney; N28.1 Cyst of kidney, acquired; N40.0 Benign prostatic hyperplasia without lower urinary tract symptoms; R73.03 Prediabetes; G47.33 Obstructive sleep apnea (adult) (pediatric)
CPT/HCPCS: 36415; 36600; 70030-TC; 71045; 82378; 83550; 83605; 83615; 83690; 83735; 84100; 84153; 84156; 84300; 84443; 84478; 85025; 85610; 86140; 86480; 86803; 86850; 86900; 86901; 87040; 87070; 87086; 87328; 87806; 93005; 94002; 94003; 94640; 94660; A4217; A4663; G0378; J0282; J0330; J0456; J0461; J0692; J0696; J1100; J1170; J1200; J1650; J1885; J1940; J2405; J2543; J2765; J3010; J3262; J3490; J3535; J7030; J7050; J7060; P9016-BL; P9017-BL; Q9967; U0003